=== PATIENT | female | born 1945 | race Caucasian/White ===

== ENCOUNTER 2023-05-26 20:56 | Inpatient (IN) | payer MEDICARE, BC, SELFPAY ==
[2023-05-26] VITALS (11 sets, daily range): BP systolic 114–136; BP diastolic 66–73; PULSE 80–82; RESP 16–20; TEMP 36.7; O2SAT 95–99
--- NOTE | 2023-05-26 21:05 | XR_ITS ---
The [address] [address] Patient Name: EMELINA CYR MRN: [id number] date: 1945 Sex: F Assigned Patient Location: ER Current Patient Location: ER Accession/Order Number: [id number] Exam Date: 05/26/2023 21:45 Report Date: 05/26/2023 22:26 At the request of: JOSEPHINE MARKER Procedure: XR chest 1V EXAM: XR chest 1V HISTORY: AMS COMPARISON: None. TECHNIQUE: Portable chest FINDINGS: Diffuse chronic changes throughout the lung parenchyma with no acute consolidation or infiltrate. No pneumothorax or pleural effusion. The cardiac, mediastinal and hilar contours are unremarkable XR/XR chest 1V IMPRESSION: No visualized acute irregularity. Electronically authenticated by: PATRICIA VALADEZ Date: 05/26/2023 22:26
--- NOTE | 2023-05-26 21:05 | CT_ITS ---
The [address] [address] Patient Name: EMELINA CYR MRN: [id number] date: 1945 Sex: F Assigned Patient Location: ER Current Patient Location: ER Accession/Order Number: [id number] Exam Date: 05/26/2023 21:45 Report Date: 05/26/2023 22:30 At the request of: JOSEPHINE MARKER Procedure: CT head/brain wo con EXAM: CT head/brain wo con HISTORY: fall, head trauma COMPARISON: None. TECHNIQUE: Axial CT scans through the head were obtained without IV contrast administration. Dose reduction techniques were achieved by using: automated exposure control and/or adjustment of mA and /or kV according to patient size and/or use of iterative reconstruction technique. FINDINGS: There is no evidence of acute intracranial hemorrhage or abnormal extra-axial fluid collection. No mass effect or midline shift is seen. There is no evidence of large acute territorial infarction. There is no hydrocephalus. Mild enlarged cortical sulci, consistent with age appropriate cerebral atrophy. Mild low-attenuation patchy areas are present in supratentorial white matter, likely represents chronic microvascular ischemia. There are mild atherosclerotic calcifications of bilateral carotid carotid arteries. To the limit of CT, the posterior fossa appears unremarkable. No definite acute fracture is identified. Soft tissues are unremarkable. The visualized orbits show no abnormal mass. The visualized paranasal sinuses show no air-fluid level. Mastoid air cells are clear. CT/CT head/brain wo con IMPRESSION: No CT evidence of acute intracranial abnormality. Electronically authenticated by: DAVID MCFARLAND Date: 05/26/2023 22:30
--- NOTE | 2023-05-26 21:05 | ECG_ITS ---
The [facility] Test Date: 2023-05-26 Pat Name: Nara Sadler Department: Room: - Gender: Female Setter Machine: : 1945 Requested By: ZHAO BROCK Order Number: [id number] Reading MD: CRISTINE DEAN Measurements Intervals [place] Rate: 80 P: 70 IN: 156 QRS: 71 QRSD: 86 T: 270 QT: 392 QTc: 428 Interpretive Statements 1100 Sinus rhythm 4164 Twave abnormality, possible anterior ischemia 9150 abnormal ECG No previous ECG available for comparison Electronically Signed On 05-27-2023 7:05:09 EDT by CRISTINE DEAN
--- NOTE | 2023-05-26 21:05 | XR_ITS ---
The [address] [address] Patient Name: EMELINA CYR MRN: [id number] date: 1945 Sex: F Assigned Patient Location: ER Current Patient Location: ER Accession/Order Number: [id number] Exam Date: 05/26/2023 21:45 Report Date: 05/26/2023 22:28 At the request of: JOSEPHINE MARKER Procedure: XR hip BI w PEL 1V EXAM: XR hip BI w PEL 1V HISTORY: fall, left hip pain COMPARISON: None. TECHNIQUE: AP pelvis and 2 views of each hip FINDINGS: No visualized acute fracture, dislocation, subluxation or osseous lesion. Old chronic irregularity of the left pubic symphysis. Hip joints and sacroiliac joints are unremarkable. Postoperative changes of lumbar spine XR/XR hip BI w PEL 1V IMPRESSION: No visualized acute abnormality Electronically authenticated by: PATRICIA VALADEZ Date: 05/26/2023 22:28
--- NOTE | 2023-05-26 21:05 | CT_ITS ---
The [address] [address] Patient Name: EMELINA CYR MRN: [id number] date: 1945 Sex: F Assigned Patient Location: ER Current Patient Location: ER Accession/Order Number: [id number] Exam Date: 05/26/2023 21:45 Report Date: 05/26/2023 22:29 At the request of: JOSEPHINE MARKER Procedure: CT thoracic spine wo con EXAM: CT thoracic spine wo con HISTORY: The patient is a 78-year-old female, fall, back pain COMPARISON: None. TECHNIQUE: CT images were obtained through the thoracic spine without intravenous contrast and reformatted in 2 dimensions. Dose reduction techniques were achieved by using automated exposure control and/or adjustment of mA and/or kV according to patient size and/or use of iterative reconstruction technique. FINDINGS: The axial images demonstrate no fractures or cortical discontinuities throughout the thoracic spine. The coronal and sagittal reformatted images demonstrate no fractures or loss of vertebral body height throughout the thoracic spine. There is no malalignment or disc space narrowing. There is evidence of a hemangioma within the left half of the L2 vertebral body. The soft tissue images demonstrate no evidence of disc herniations or central canal stenosis throughout the thoracic spine. CT/CT thoracic spine wo con IMPRESSION: This is a negative CT scan of the thoracic spine with no fractures or loss of vertebral body height. Electronically authenticated by: DAVID SHETTY Date: 05/26/2023 22:29
--- NOTE | 2023-05-26 21:06 | CT_ITS ---
The [address] [address] Patient Name: EMELINA CYR MRN: [id number] date: 1945 Sex: F Assigned Patient Location: ER Current Patient Location: ER Accession/Order Number: [id number] Exam Date: 05/26/2023 21:45 Report Date: 05/26/2023 22:35 At the request of: JOSEPHINE MARKER Procedure: CT cervical spine wo con EXAM: CT cervical spine wo con HISTORY: fall, head trauma, neck pain COMPARISON: None. TECHNIQUE: Axial CT imaging is performed. Sagittal and coronal reformatted reconstructed sequencing was additionally performed. FINDINGS: IMPRESSION: Age-indeterminate straightening of the normal cervical lordosis. Vertebral body heights and alignments exhibit no fracture or listhesis. The dens and lateral masses of C1 are symmetric. Multilevel intervertebral disc space narrowing, endplate, uncovertebral and facet changes. No prevertebral soft tissue edema. The visualized osseous skull base, mastoid air cells, airway and thoracic inlet exhibit no gross visualized acute abnormality. Poorly evaluated thickening of the esophagus. Chronic emphysema changes of the pulmonary apices with no visualized acute abnormality. Electronically authenticated by: PATRICIA VALADEZ Date: 05/26/2023 22:35
--- NOTE | 2023-05-26 21:08 | ED.FALL1 ---
HPI - Fall General Chief Complaint: Fall Stated Complaint: FALL Time Seen by Provider: 05/26/23 21:05 Source: patient Mode of arrival: ambulance History of Present Illness HPI Narrative: This 78-year-old female is brought emergency department by EMS after she fell out of bed. According to the paramedics report she was in bed and her family heard a side in her bedroom. They went into her room and she was on the floor. They are not available to provide additional history upon her arrival. Patient was placed in a cervical collar and transported to the emergency department. Upon arrival she was taken to room 5. She appears to be weak but is responsive and appropriate. She states she has hurts like hell. I asked her where she hurts and she stated between her shoulder blades. She does not recall falling. She is poorly kempt and foul-smelling. She complains of neck and upper back pain. She has pain with flexion of the right hip and appears to have somewhat of a shortened left lower extremity. She denies any chest pain or shortness of breath at this time. She denies any nausea stating that she recently vomited. She is wearing bed clothes that appear to be stained with old vomit but they are not wet. Patient's daughter arrived shortly after the patient was brought to the emergency department. The patient's daughter states that the patient lives with her granddaughter and great grandchildren who will try to take care of her. The patient does have a history of chronic obstructive pulmonary disease and no longer smokes cigarettes but does use a vape pen. She states that the patient refuses to get up and exercise. She has been admitted to the hospital several times in the past and then sent to rehab to get stronger to come home. She states that recently she has become less mobile than usual. She was sitting on the edge of her bed tonight, the bed is fairly low to the ground, it appeared after she fell that she may have struck her bedside stand because she was holding her head and complaining of head pain. Her great granddaughter heard her fall and went to her room. The patient's daughter states that she seems kind of out of it . She states that she did recently get approved to take Malone for pain and also takes 30 mg temazepam and amitriptyline for sleep. She also uses oxygen at night when she sleeps. She is a patient of Dr. Martinez but has not been able to get in for an appointment recently. Her daughter states that she has been increasingly weak and refuses to go to her podiatry appoinments. Her daughter is frustrated and hopes she can get some help. Related Data Allergies Allergy/AdvReac Type Severity Reaction Status Date / Time No Known Drug Allergies Allergy Verified 05/26/23 21:54 Review of Systems ROS Status of ROS 10 or more systems reviewed and unremarkable except as noted in history and below [facility] Social History Smoking status: Unknown if ever smoked Exam Narrative Exam Narrative: Nurses note and vital signs reviewed and patient is not hypoxic. General: Then, poorly kempt female, GCS 15, she has her eyes closed but opens them to verbal stimuli, she is awake alert oriented but think she is 89 years old Skin: Warm, dry, no pallor noted. Flat, brown rash on lumbar region, appears to be old meeks or chronic in nature Head: Normocephalic, atraumatic Neck: In cervical collar, no midline bony tenderness or step-off Eye: Normal conjunctiva, no drainage, EOMI. PERRL. Vision grossly intact Ears, Nose, Mouth, and Throat: oral mucosa is moist. Nares patent. Mouth without vesicles. Cardiovascular: Regular Rate and Rhythm S1S2, no murmurs, rubs or gallops, pulses are brisk and equal bilaterally Respiratory: Patient is in no distress, no accessory muscle use, lungs are clear to auscultation, no wheezing, rales or rhonchi, no chest wall tenderness Back: non-tender, no midline bony vertebral tenderness or step off, no CVA tenderness bilaterally to percussion. There are brown skin changes on both lower flank areas, appear chronic in nature such as old meeks etc GI: Normal bowel sounds, no tenderness to palpation, no masses appreciated. No rebound, guarding, or rigidity noted. 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 Able to move both lower extremities. She does appear to have some degree of diplopia. Psychiatric: Cooperative Constitutional Vital Signs, click to edit/add: Last Vital Signs Temp 98.1 F 05/26/23 20:58 Pulse 81 05/26/23 21:30 Resp 19 05/26/23 21:30 BP 120/66 05/26/23 22:31 Pulse Ox 98 05/26/23 22:31 O2 Del Method Room Air 05/26/23 21:20 Course Course Hospital Course: Patient was somewhat somnolent upon arrival and after IV fluids and several hours in the emergency department she is more alert. She states that she is only taking the Malone occasionally when she needs it for pain. She is interactive with her daughter. She admits that she needs help at home and may need some additional assistance as she has in the past. Vital Signs Vital signs: Vital Signs Temperature 98.1 F 05/26/23 20:58 Pulse Rate 82 05/26/23 20:58 Respiratory Rate 19 05/26/23 20:58 Blood Pressure 125/71 05/26/23 20:58 Pulse Oximetry 99 05/26/23 20:58 Oxygen Delivery Method Room Air 05/26/23 20:58 Temperature 98.1 F 05/26/23 20:58 Pulse Rate 81 05/26/23 21:30 Respiratory Rate 19 05/26/23 21:30 Blood Pressure 120/66 05/26/23 22:31 Pulse Oximetry 98 05/26/23 22:31 Oxygen Delivery Method Room Air 05/26/23 21:20 MDM - Fall MDM Narrative Medical decision making narrative: This 78-year-old female with a history of chronic obstructive pulmonary disease who lives with her granddaughter and grandchildren is brought to the emergency department from home after she fell. It is believed that she was sitting on the edge of her bed when she fell. Her bed is low to the ground but it is thought that she fell from a sitting position in her bed and struck her head on her bedside stand. She was evaluated by EMS and a cervical collar was placed. Upon arrival she was somnolent but arousable. GCS was 15. She made sense but had some degree of slurred speech. Due to the trauma and the uncertainty of her condition she was taken for CT scan of the head, neck and also her thoracic spine was scanned because she stated that she was having pain in her shoulder blades. The patient's daughter states that she does not see her every day but her granddaughter does keep track of her medications and she recently filled a prescription for Malone as well as temazepam 30 mg. She also takes Elavil. The patient apparently takes the temazepam and Elavil around bedtime and takes Malone around dinnertime if she needs it. This may account for her somnolence upon arrival. She denied any chest pain or shortness of breath upon arrival. The patient's daughter states she does use oxygen at night. Her pulse ox is been normal in the emergency department. Vital signs were stable. EKG done upon arrival was a sinus rhythm at 80 beats for minute with no acute changes. She was given IV fluids and routine labs were ordered as well as her CT scans and x-rays. She has a normal white count and hemoglobin. Her electrolytes are normal with the exception of a potassium of 2.9. Creatinine is mildly elevated at 1.16 The BUN of 15. Straight catheter for urine was performed and does not show any sign of acute infection. It does show bacteria and 2-5 white blood cells with squamous epithelial cells contaminating the urine. Urine tox is positive for benzos and tricyclics. She has a normal troponin. She has a normal lactic acid. Blood gas was ordered to rule out COO2 retention and shows a mild metabolic alkalosis. She received IV fluids and potassium supplementation in the emergency department. CT scan of the brain is negative for acute findings. CT scan of the cervical spine is negative for acute findings. Chest x-ray shows chronic changes but no acute infiltrate. CT scan of the thoracic spine does not show any acute findings and pelvis and hip x-ray is negative for acute findings. After several hours in the emergency department the patient became more alert, I suspect some of her medications or starting to wear off. Her daughter does wish to have her admitted to the hospital for further evaluation by her family physician and possible referral to rehab or in-home health care. The patient is agreeable to this. The case was discussed with the hospitalist and the patient is accepted for admission to [facility]. Lab Data Attestation: I reviewed the patient's lab results. Lab results narrative: potassium of 2.9, otherwise normal Labs: Lab Results 10/31/23 10/31/23 10/31/23 Range/Units 21:24 22:20 22:28 WBC 5.7 (4.0-11.0) 10^3/uL RBC 3.39 L (4.20-5.40) 10^6/uL Hgb 11.1 L (12.0-16.0) g/dL Hct 32.7 L (36.0-48.0) % MCV 96.5 (81.0-99.0) fL MCH 32.7 (26.7-34.0) pg MCHC 33.9 (29.9-35.2) g/dL RDW 14.3 (11.0-15.0) % Plt Count 257 (150-450) 10^3/uL MPV 9.6 (9.5-13.5) fL Neut % (Auto) 51.5 (43.0-75.0) % Lymph % (Auto) 32.2 (20.5-60.0) % [place]ansom % (Auto) 11.4 (1.7-12.0) % Eos % (Auto) 3.5 (0.9-7.0) % Baso % (Auto) 0.9 (0.2-2.0) % Neut # (Auto) 3.0 (1.4-6.5) 10^3/uL Lymph # (Auto) 1.8 (1.2-3.8) 10^3/uL Ransom # (Auto) 0.7 (0.3-0.8) 10^3/uL Eos # (Auto) 0.2 (0.0-0.7) 10^3/uL Baso # (Auto) 0.1 (0.0-0.1) 10^3/uL Abs Immat Gran (auto) 0.03 (0.00-0.03) 10^3/uL Imm/Tot Granulo (auto) 0.5 (0.0-0.5) % Puncture Site ABG pH (7.350-7.450) ABG pCO2 (35.0-45.0) mmHg ABG pO2 (80.0-100.0) mmHg ABG HCO3 (22.0-26.0) mmol/L ABG O2 Saturation % ABG Base Excess (-2.0-2.0) mmol/L Ken Test (POSITIVE) Sodium 135 L (136-145) mmol/L Potassium 2.9 L* (3.5-5.1) mmol/L Chloride 100 (98-107) mmol/L Carbon Dioxide 33.8 H (21.0-32.0) mmol/L Anion Gap 4.1 BUN 15.0 (7.0-18.0) mg/dL Creatinine 1.16 H (0.55-1.02) mg/dL Est GFR ( Amer) 55 L (>=60) Est GFR (Non-Af Amer) 45 L (>=60) BUN/Creatinine Ratio 12.9 Glucose 104 (74-106) mg/dL Lactate 1.2 (0.4-2.0) mmol/L Calcium 8.5 (8.5-10.1) mg/dL Total Bilirubin 0.5 (0.2-1.0) mg/dL AST 18 (15-37) U/L ALT 17 (14-59) U/L Alkaline Phosphatase 80 (46-116) U/L Troponin I High Sens 6.4 (4.0-51.3) pg/mL Total Protein 6.4 (6.4-8.2) g/dL Albumin 2.9 L (3.4-5.0) g/dL Globulin 3.5 g/dL Albumin/Globulin Ratio 0.8 Urine Color Lt. yellow (YELLOW) Urine Clarity Clear (CLEAR) Urine pH 7.0 (5.0-9.0) Ur Specific [place] 1.015 (1.005-1.025) Urine Protein Negative (NEG/TRACE) mg/dL Urine Glucose (UA) Negative (NEGATIVE) mg/dL Urine Ketones Negative (NEGATIVE) mg/dL Urine Occult Blood Trace-i (NEGATIVE) Urine Nitrite Negative (NEGATIVE) Urine Bilirubin Negative (NEGATIVE) Urine Urobilinogen 4.0 A (0.2-1.0) EU/dL Ur Leukocyte Esterase Trace A (NEGATIVE) Urine RBC 0-2 (0-2) #/HPF Urine WBC 2-5 A (NONE SEEN) #/HPF Ur Squamous Epith Cells Few A (NONE/RARE) #/LPF Urine Crystals None seen (None Seen) #/HPF Urine Bacteria Moderate A (NONE SEEN) #/HPF Urine Casts None seen (NONE SEEN) #/LPF Urine Mucus None seen (NONE SEEN) Ur Culture Indicated? Yes Urine Opiates Screen Negative (NEGATIVE) Ur Buprenorphine Scrn Negative (NEGATIVE) Ur Oxycodone Screen Negative (NEGATIVE) Urine Methadone Screen Negative (NEGATIVE) Ur Barbiturates Screen Negative (NEGATIVE) U Tricyclic Antidepress Positive A (NEGATIVE) Ur Phencyclidine Scrn Negative (NEGATIVE) Ur Amphetamines Screen Negative (NEGATIVE) U Methamphetamines Scrn Negative (NEGATIVE) U Benzodiazepines Scrn Positive A (NEGATIVE) Urine Cocaine Screen Negative (NEGATIVE) U Cannabinoids Screen Negative (NEGATIVE) 05/26/23 Range/Units 23:30 WBC (4.0-11.0) 10^3/uL RBC (4.20-5.40) 10^6/uL Hgb (12.0-16.0) g/dL Hct (36.0-48.0) % MCV (81.0-99.0) fL MCH (26.7-34.0) pg MCHC (29.9-35.2) g/dL RDW (11.0-15.0) % Plt Count (150-450) 10^3/uL MPV (9.5-13.5) fL Neut % (Auto) (43.0-75.0) % Lymph % (Auto) (20.5-60.0) % [place] % (Auto) (1.7-12.0) % Eos % (Auto) (0.9-7.0) % Baso % (Auto) (0.2-2.0) % Neut # (Auto) (1.4-6.5) 10^3/uL Lymph # (Auto) (1.2-3.8) 10^3/uL [place] # (Auto) (0.3-0.8) 10^3/uL Eos # (Auto) (0.0-0.7) 10^3/uL Baso # (Auto) (0.0-0.1) 10^3/uL Abs Immat Gran (auto) (0.00-0.03) 10^3/uL Imm/Tot Granulo (auto) (0.0-0.5) % Puncture Site Rr ABG pH 7.479 H (7.350-7.450) ABG pCO2 39.9 (35.0-45.0) mmHg ABG pO2 70.9 L (80.0-100.0) mmHg ABG HCO3 29.6 H (22.0-26.0) mmol/L ABG O2 Saturation 95.3 % ABG Base Excess 6.1 H (-2.0-2.0) mmol/L Ken Test Positive (POSITIVE) Sodium (136-145) mmol/L Potassium (3.5-5.1) mmol/L Chloride (98-107) mmol/L Carbon Dioxide (21.0-32.0) mmol/L Anion Gap BUN (7.0-18.0) mg/dL Creatinine (0.55-1.02) mg/dL Est GFR ( Amer) (>=60) Est GFR (Non-Af Amer) (>=60) BUN/Creatinine Ratio Glucose (74-106) mg/dL Lactate (0.4-2.0) mmol/L Calcium (8.5-10.1) mg/dL Total Bilirubin (0.2-1.0) mg/dL AST (15-37) U/L ALT (14-59) U/L Alkaline Phosphatase (46-116) U/L Troponin I High Sens (4.0-51.3) pg/mL Total Protein (6.4-8.2) g/dL Albumin (3.4-5.0) g/dL Globulin g/dL Albumin/Globulin Ratio Urine Color (YELLOW) Urine Clarity (CLEAR) Urine pH (5.0-9.0) Ur Specific [place] (1.005-1.025) Urine Protein (NEG/TRACE) mg/dL Urine Glucose (UA) (NEGATIVE) mg/dL Urine Ketones (NEGATIVE) mg/dL Urine Occult Blood (NEGATIVE) Urine Nitrite (NEGATIVE) Urine Bilirubin (NEGATIVE) Urine Urobilinogen (0.2-1.0) EU/dL Ur Leukocyte Esterase (NEGATIVE) Urine RBC (0-2) #/HPF Urine WBC (NONE SEEN) #/HPF Ur Squamous Epith Cells (NONE/RARE) #/LPF Urine Crystals (None Seen) #/HPF Urine Bacteria (NONE SEEN) #/HPF Urine Casts (NONE SEEN) #/LPF Urine Mucus (NONE SEEN) Ur Culture Indicated? Urine Opiates Screen (NEGATIVE) Ur Buprenorphine Scrn (NEGATIVE) Ur Oxycodone Screen (NEGATIVE) Urine Methadone Screen (NEGATIVE) Ur Barbiturates Screen (NEGATIVE) U Tricyclic Antidepress (NEGATIVE) Ur Phencyclidine Scrn (NEGATIVE) Ur Amphetamines Screen (NEGATIVE) U Methamphetamines Scrn (NEGATIVE) U Benzodiazepines Scrn (NEGATIVE) Urine Cocaine Screen (NEGATIVE) U Cannabinoids Screen (NEGATIVE) ECG Data Attestation: I personally reviewed and interpreted this ECG as follows: (Sinus rhythm 80 beats for minute, normal axis, normal intervals, no acute ST segment elevation or T-wave inversion) Discharge Plan Discharge Chief Complaint: Fall Clinical Impression: Fall from bed, initial encounter, Hypokalemia Patient Disposition: Admitted as Observation Time of Disposition Decision: 00:15 Condition: Fair Referrals: Joaquín Martinez MD [Primary Care Provider] - 1 week
[2023-05-26 21:49] LABS: Alanine Aminotransferase 17 U/L (14-59); Albumin Globulin Ratio 0.8; Albumin Level 2.9 g/dL (3.4-5.0); Alkaline Phosphatase 80 U/L (46-116); Anion Gap 4.1; Aspartate Amino Transferase 18 U/L (15-37); BUN Creatinine Ratio 12.9; Bilirubin Total 0.5 mg/dL (0.2-1.0); Calcium 8.5 mg/dL (8.5-10.1); Carbon Dioxide 33.8 mmol/L (21.0-32.0); Chloride 100 mmol/L (98-107); Estimated GFR (African America 55 (>=60); Estimated GFR (Non-African Ame 45 (>=60); Globulin 3.5 g/dL; Glucose 104 mg/dL (74-106); Sodium 135 mmol/L (136-145); Total Protein 6.4 g/dL (6.4-8.2); Troponin I High Sensitivity 6.4 pg/mL (4.0-51.3)
[2023-05-26 21:51] LABS: Potassium 2.9 mmol/L (3.5-5.1)
--- NOTE | 2023-05-26 21:54 | PC.NURSE ---
Daughter back to patient room at this time and is updated on plan of care. Daughter verifies patient has no known drug allergies.
[2023-05-26] MEDS: 0.9 % SODIUM CHLORIDE 1,000 ML 125 ML IV (22:13)
[2023-05-26] MEDS: ONDANSETRON PF 4 MG/2 ML VIAL IV (22:13)
[2023-05-26 22:52] LABS: Bilirubin Urine NEGATIVE (NEGATIVE); Blood Urine TRACE-I (NEGATIVE); Clarity Urine CLEAR (CLEAR); Color Urine LT. YELLOW (YELLOW); Glucose Urine UA NEGATIVE (NEGATIVE); Ketones Urine NEGATIVE (NEGATIVE); Leukocyte Esterase Urine TRACE (NEGATIVE); Nitrite Urine NEGATIVE (NEGATIVE); Protein Urine NEGATIVE (NEG/TRACE); Specific Gravity Urine 1.015 (1.005-1.025)
[2023-05-26 22:54] LABS: Basophils Absolute Auto 0.1 10^3/uL (0.0-0.1); Basophils Percent Auto 0.9 % (0.2-2.0); Eosinophils Absolute Auto 0.2 10^3/uL (0.0-0.7); Eosinophils Percent Auto 3.5 % (0.9-7.0); Hematocrit 32.7 % (36.0-48.0); Hemoglobin 11.1 g/dL (12.0-16.0); Immature Granulocytes Abs Auto 0.03 10^3/uL (0.00-0.03); Immature Granulocytes Pct Auto 0.5 % (0.0-0.5); Lymphocytes Absolute Auto 1.8 10^3/uL (1.2-3.8); Lymphocytes Percent Auto 32.2 % (20.5-60.0); Mean Corpuscular HGB Conc 33.9 g/dL (29.9-35.2); Mean Corpuscular Hemoglobin 32.7 pg (26.7-34.0); Mean Corpuscular Volume 96.5 fL (81.0-99.0); Mean Platelet Volume 9.6 fL (9.5-13.5); Monocytes Absolute Auto 0.7 10^3/uL (0.3-0.8); Monocytes Percent Auto 11.4 % (1.7-12.0); Neutrophils Percent Auto 51.5 % (43.0-75.0); Platelet Count 257 10^3/uL (150-450); Red Blood Count 3.39 10^6/uL (4.20-5.40); Red Cell Distribution Width 14.3 % (11.0-15.0); White Blood Count 5.7 10^3/uL (4.0-11.0)
[2023-05-26 23:06] LABS: Lactate/Lactic Acid 1.2 mmol/L (0.4-2.0)
[2023-05-26 23:07] LABS: Amphetamine Screen Urine NEGATIVE (NEGATIVE); Barbiturates Screen Urine NEGATIVE (NEGATIVE); Benzodiazepines Screen Urine POSITIVE (NEGATIVE); Buprenorphine Screen Urine NEGATIVE (NEGATIVE); Cannabinoid Screen Urine NEGATIVE (NEGATIVE); Cocaine Screen Urine NEGATIVE (NEGATIVE); Methadone Screen Urine NEGATIVE (NEGATIVE); Methamphetamines Screen Urine NEGATIVE (NEGATIVE); Opiate Screen Urine NEGATIVE (NEGATIVE); Oxycodone Screen Urine NEGATIVE (NEGATIVE); Phencyclidine Screen Urine NEGATIVE (NEGATIVE); Tricyclic Antidepressant Urine POSITIVE (NEGATIVE)
[2023-05-26 23:16] LABS: Bacteria Urine MODERATE #/HPF (NONE SEEN); Cast Seen? NONE SEEN #/LPF (NONE SEEN); Crystals Seen? None Seen #/HPF (None Seen); Mucus Urine NONE SEEN (NONE SEEN); RBC Urine 0-2 #/HPF (0-2); Squamous Epithelial Cell Urine FEW #/LPF (NONE/RARE); Urine Culture Indicated YES
[2023-05-26] MEDS: POTASSIUM CHLORIDE IN WATER 10 MEQ/100 ML PIGGYBACK 100 MEQ IV (23:18)
[2023-05-26 23:38] LABS: ABG PCO2 39.9 mmHg (35.0-45.0); Allen Test POSITIVE (POSITIVE); Base Excess ABG 6.1 mmol/L (-2.0-2.0); HCO3 ABG 29.6 mmol/L (22.0-26.0); O2 Mode ROOM AIR; Oxygen Saturation ABG 95.3 %; PO2 ABG 70.9 mmHg (80.0-100.0); Puncture Site RR; pH ABG 7.479 (7.350-7.450)
[2023-05-27] VITALS (19 sets, daily range): BP systolic 100–146; BP diastolic 61–72; PULSE 71–94; RESP 16–20; TEMP 36.5–36.9; O2SAT 91–100; BMI 23.8
[2023-05-27] MEDS: POTASSIUM CHLORIDE IN WATER 10 MEQ/100 ML PIGGYBACK 100 MEQ IV ×3 (00:45→04:22)
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
--- NOTE | 2023-05-27 02:12 | W.PM.TELEPN ---
Progress Note: Subjective Subjective Interval history: CC: weakness, frequent falls HPI: This 78-year-old WF who was brought emergency department by EMS after she fell out of bed. According to the paramedics report she was in bed and her family heard a side in her bedroom. They went into her room and she was on the floor. The patient was not available to provide additional history upon her arrival. She endorses falling daily. She is poorly kempt and foul-smelling. She complains of neck and upper back pain. She has pain with flexion of the right hip and appears to have somewhat of a shortened left lower extremity. She denies any chest pain or shortness of breath at this time. She denies any nausea stating that she recently vomited. The patient does have a history of chronic obstructive pulmonary disease and no longer smokes cigarettes but does use a vape pen. She states that the patient refuses to get up and exercise. She has been admitted to the hospital several times in the past and then sent to rehab to get stronger to come home. She states that recently she has become less mobile. She take [place] for pain and also takes 30 mg temazepam and amitriptyline for sleep. She also uses oxygen at night when she sleeps. She is a patient of Dr. Martinez but has not been able to get in for an appointment recently. Her daughter states that she has been increasingly weak and refuses to go to her podiatry appoinments. Her daughter is frustrated and hopes she can get some help. Exam Narrative Exam Narrative: ROS: 1.General: no fever, chills, not in distress 2.HEENT: no VILLATORO, no blurry vision, no swallow problems, no nasal congestion, no sore throat 3.Pulmonary: no cough, SOB, wheezes 4.CVS: no CP, no palpitations, no CHAIDEZ, no SOB, no intermittent claudication 5.GI: no nausea, vomiting or diarrhea, no abdominal pain, no constipation, no hematemesis or hematochezia 6.: no renal colic, no hematuria, urinary frequency or urgency 7.Extremities: no edema 8.Neurological: no dizziness, vertigo, double or blurry vision, no no focal weakness, no paresthesia, no swallow or speech problems 9.Musculosceletal: no joint pains, no joint swelling, no back pain 10.Dermatological: no skin rashes, no lesions, no pruritus 11.Hematological: no bleeding, no hx/o clots 12.Endocrinological: no heat/cold intolerance, no hx/o diabetes 13.Psychiatric: no suicidal or homicidal thoughts Physical Exam: Not in distress, pleasant, lucid, cooperative, Head - atraumatic, eyes - pupils equal, round, reactive to light, extra ocular movement intact, MMM Neck - supple, thyroid not enlarged, LN not palpated Lungs - clear to auscultation, no dullness on percussion CVS - heart sounds S1, S2, no additional murmurs gallop, regular rate and rhythm Gastrointestinal?abdomen is soft, non-tender, non-distended, no organomegaly, positive bowel sounds Extremities no clubbing, cyanosis or edema Neurological?cranial nerve II?XII grossly intact, no meningeal signs, no cerebellar signs, no sensory deficit Musculoskeletal - DJD related changes in multiple joints, no effusions, ROM preserved Dermatological - the skin dry, warm, no rashes Psychiatric?patient has normal affect Constitutional Vital Signs, click to edit/add: Last Vital Signs Temp 97.8 F 05/27/23 01:30 Pulse 85 05/27/23 01:30 Resp 20 05/27/23 01:30 BP 126/67 05/27/23 01:30 Pulse Ox 91 L 05/27/23 01:30 O2 Del Method Room Air 05/27/23 01:30 Progress Note: Objective Labs Labs: Short CBC 05/26/23 Range/Units 21:24 WBC 5.7 (4.0-11.0) 10^3/uL Hgb 11.1 L (12.0-16.0) g/dL Hct 32.7 L (36.0-48.0) % Plt Count 257 (150-450) 10^3/uL BMP 05/26/23 21:24 Sodium 135 L Potassium 2.9 L* Chloride 100 Carbon Dioxide 33.8 H BUN 15.0 Creatinine 1.16 H Glucose 104 Calcium 8.5 Liver Function 05/26/23 Range/Units 21:24 Total Bilirubin 0.5 (0.2-1.0) mg/dL AST 18 (15-37) U/L ALT 17 (14-59) U/L Alkaline Phosphatase 80 (46-116) U/L Albumin 2.9 L (3.4-5.0) g/dL Urine 05/26/23 Range/Units 22:20 Urine Color Lt. yellow (YELLOW) Urine Clarity Clear (CLEAR) Urine pH 7.0 (5.0-9.0) Ur Specific [place] 1.015 (1.005-1.025) Urine Protein Negative (NEG/TRACE) mg/dL Urine Glucose (UA) Negative (NEGATIVE) mg/dL Progress Note: A&P Assessment and Plan (1) Fall from bed, initial encounter: Assessment and Plan: Fall precautions in place Evaluation by physical occupational therapist ordered I am going to hold narcotics and benzodiazepines as a potential cause for the falls It seems patient can benefit from evaluation by hospice social worker as well as possible referral to rehab (2) Hypokalemia: Assessment and Plan: Replacement ordered, recheck in the morning (3) COPD (chronic obstructive pulmonary disease): Assessment and Plan: Appears to be not in distress. Ears: Bronchodilators as needed Plan As the provider for the telehealth service, I attest that I introduced myself to the patient, provided my credentials, disclosed by location and determined that based on a review of the patient's chart and discussion with members of the patient's treatment team, telemedicine via real-time, 2 way, and interactive audio and video platform is an appropriate and effective means of providing the service. ?The patient and I mutually agree this visit is appropriate for telemedicine. ?The virtual encounter was taken place from? [place], [place]. ?The encounter took approximately 35 minutes. ?The nurse was present during the entire time and I was able to move the stethoscope in appropriate directions. ?The patient was evaluated at the Hospital ? Portions of this note may be dictated using Chorus voice recognition software. Variances in spelling and vocabulary are possible and unintentional. Not all errors may be caught and/or corrected. Please notify the author if any discrepancies are noted and/or if the meaning of any statement is unclear.? ? Patient verbally consented for treatment via video visit with patient currently located at the [facility] and provider located in [place]. Telemedicine Attestation Telemedicine Attestation I conducted this encounter from [] via secure live, [id number] video conference with the patient, located at [facility] with [. Prior to the interview, the risks and benefits of telemedicine were discussed with the patient and verbal consent was obtained.
[2023-05-27 04:56] LABS: Basophils Percent Auto 0.6 % (0.2-2.0); Eosinophils Absolute Auto 0.1 10^3/uL (0.0-0.7); Eosinophils Percent Auto 1.3 % (0.9-7.0); Hemoglobin 10.2 g/dL (12.0-16.0); Immature Granulocytes Abs Auto 0.03 10^3/uL (0.00-0.03); Immature Granulocytes Pct Auto 0.4 % (0.0-0.5); Lymphocytes Absolute Auto 1.3 10^3/uL (1.2-3.8); Lymphocytes Percent Auto 19.6 % (20.5-60.0); Mean Corpuscular Hemoglobin 32.8 pg (26.7-34.0); Mean Corpuscular Volume 96.5 fL (81.0-99.0); Mean Platelet Volume 8.9 fL (9.5-13.5); Monocytes Absolute Auto 0.7 10^3/uL (0.3-0.8); Monocytes Percent Auto 9.7 % (1.7-12.0); Neutrophils Absolute Auto 4.7 10^3/uL (1.4-6.5); Neutrophils Percent Auto 68.4 % (43.0-75.0); Platelet Count 226 10^3/uL (150-450); Red Blood Count 3.11 10^6/uL (4.20-5.40); Red Cell Distribution Width 14.2 % (11.0-15.0); White Blood Count 6.8 10^3/uL (4.0-11.0)
[2023-05-27 05:15] LABS: Alanine Aminotransferase 15 U/L (14-59); Albumin Globulin Ratio 0.8; Albumin Level 2.4 g/dL (3.4-5.0); Alkaline Phosphatase 66 U/L (46-116); Anion Gap 7.6; Aspartate Amino Transferase 17 U/L (15-37); BUN Creatinine Ratio 14.4; Bilirubin Total 0.7 mg/dL (0.2-1.0); Calcium 7.4 mg/dL (8.5-10.1); Carbon Dioxide 31.4 mmol/L (21.0-32.0); Chloride 103 mmol/L (98-107); Estimated GFR (African America >60 (>=60); Estimated GFR (Non-African Ame >60 (>=60); Glucose 106 mg/dL (74-106); Sodium 138 mmol/L (136-145); Total Protein 5.4 g/dL (6.4-8.2)
[2023-05-27 09:42] LABS: Magnesium 1.8 mg/dL (1.8-2.4); Thyroid Stimulating Hormone 0.827 uIU/mL (0.358-3.740)
--- NOTE | 2023-05-27 10:06 | P.HP_ITS ---
Patient seen and examined, agree with assessment and plan below. Presented with increased weakness and found UTI and OVIDIO. Labs improved with IV fluids. On Rocephin and awaiting cultures. Start PT/OT for weakness. Diagnosis: 1. UTI 2. Hypokalemia 3. OVIDIO 4. Generalized weakness 5. Fall 6. COPD H&P: HPI History of Present Illness Chief complaint: FALL HYPOKALEMIA WEAKNESS Narrative: Date/Time of exam: 05/27/23 1948 This is a 78-year-old female patient with a past medical history as outlined below including COPD with chronic respiratory failure on O2 at night, insomnia, chronic arthritic pain; who presented to the ED last night after suffering an unwitnessed fall at home. The patient is a poor historian but reports increased falls up to 4 times in the last 1 week. She reports increasing weakness. Family notes that she resumed taking temazepam at night for sleep approximately 2 weeks ago, but had been off temazepam prior to that for more than 1 month. She has a [place] prescription that she takes occasionally for pain but uses rarely. Multiple bruises noted body wide in the ED. Work-up in the ED included CT images of the head, neck and thorax which were all unremarkable for acute abnormalities or fractures. Labs revealed hypokalemia (2.9), OVIDIO (BUN 15, CR 1.16, GFR 45) UA positive for UTI. An ABG revealed hypoxia with compensated chronic respiratory acidosis. UDS was positive for tricyclics and benzos which reflects her current prescribed medications. The patient was observed to be unkempt and staff noted an odor. She was admitted to observation by the hospitalist service last night but this has been converted to an inpatient admission today for hypokalemia, OVIDIO, dehydration, UTI, and frequent falls. At the time of my exam the patient is resting comfortably in bed. Nursing notes that the patient did not sleep well during the night. The patient does not have a clear memory of her fall but does describe multiple falls in the last week. She correlates her increasing falls to resuming temazepam but we do not have a clear causality. She notes increasing weakness over the last 1 to 2 weeks and also complains of urinary frequency although denies dysuria. She denies chest pain, shortness of breath, dizziness, abdominal pain, and cannot describe prodromal symptoms prior to her fall. Review of Systems ROS Status of ROS 10 or more systems reviewed and unremarkable except as noted in history and below [facility] Medical History (Updated 05/27/23 @ 11:15 by Shala Arias NP) Painful total knee replacement, left ?T84.84XA - Pain due to internal orthopedic prosthetic devices, implants and grafts, initial encounter (ICD-10) ?Z96.652 - Presence of left artificial knee joint (ICD-10) Peripheral edema ?R60.9 - Edema, unspecified (ICD-10) Surgical History (Updated 05/27/23 @ 01:00 by Yumiko Huang) History of hysterectomy ?Z90.710 - Acquired absence of both cervix and uterus (ICD-10) Previous back surgery ?Z98.890 - Other specified postprocedural states (ICD-10) Family History (Updated 05/27/23 @ 01:01 by Yumiko Huang) Father Family history of CHF (congestive heart failure) Social History (Updated 05/27/23 @ 01:03 by Yumiko Huang) Within the past year, how often did you have a drink containing alcohol: never Score interpretation: A score less than 3 is consistent with normal alcohol consumption. Smoking status: Former smoker Second hand tobacco smoke exposure: No Non-prescribed substance use: denies use Previous occupational history: retired Known occupational exposures/hazards: No Highest level of school completed/degree received: high school graduate Do you want help with school or training: No Are you now , , , , never or living with a partner: In a typical week, how many times do you talk on the telephone with family, friends, or neighbors: 3 or more times per week How often do you get together with friends or relatives: 3 or more times per week How often do you attend uatsdin or congregation services: never Little interest or pleasure in doing things: several days Feeling down, depressed, or hopeless: several days Feel stressed/tense/nervous/anxious/difficulty sleeping: only a little Due to disability, difficulty making decisions: No Do you think of yourself as: straight/heterosexual Gender Identity: female Meds Home Medications and Allergies Home Medications Medication Instructions Recorded Confirmed Type amitriptyline 75 mg tablet 75 mg PO .QHS 05/27/23 05/27/23 History benzonatate 200 mg capsule 200 mg PO TID PRN cough 05/27/23 05/27/23 History docusate sodium 100 mg capsule 100 mg PO BID PRN constipation 05/27/23 05/27/23 History ([place]) furosemide 20 mg tablet 20 mg PO .QD PRN edema 05/27/23 05/27/23 History hydrocodone 5 mg-acetaminophen 325 1 tab PO QID PRN pain 05/27/23 05/27/23 History mg tablet temazepam 30 mg capsule 30 mg PO .QHS PRN sleep 05/27/23 05/27/23 History Allergies Allergy/AdvReac Type Severity Reaction Status Date / Time No Known Drug Allergies Allergy Verified 05/26/23 21:54 Exam Constitutional Vital Signs, click to edit/add: Last Vital Signs Temp 97.7 F 05/27/23 05:55 Pulse 86 05/27/23 09:50 Resp 20 05/27/23 05:55 BP 114/70 05/27/23 05:55 Pulse Ox 93 L 05/27/23 05:55 O2 Del Method Room Air 05/27/23 05:55 Common normals: no apparent distress, oriented x3, alert and well nourished General appearance: cooperative Orientation/consciousness: Yes awake HENMT Common normals: normocephalic, head/scalp atraumatic, hearing grossly normal bilaterally, external ears normal, external nose normal and moist oral mucous membranes Head and scalp: normocephalic and atraumatic Face and sinus: normal facial exam Nose: external nose normal External ear: external ears normal Eye Common normals: PERRL, EOMs intact bilaterally, conjunctivae normal and no scleral icterus General eye: normal appearance of both eyes Alignment: alignment normal Eyelid: eyelids normal Conjunctiva: conjunctiva(e) normal Pupil: PERRL Neck & C-Spine Common normals: full ROM, supple and no JVD Chest Common normals: inspection of chest normal Chest: symmetrical chest wall rise Respiratory Common normals: normal respiratory effort, no retractions, no use of accessory muscles and clear to auscultation bilaterally Effort & inspection: able to speak in complete sentences Auscultation: diminished lung sounds (BLL) Cardio Common normals: no JVD, regular rate, regular rhythm, S1 normal heart sound, S2 normal heart sound, no gallops, no clicks, no murmurs, no rub and peripheral pulses 2+ throughout GI Common normals: Normal to inspection, nondistended, normoactive bowel sounds present, soft to palpation, non-tender, no hepatosplenomegaly, no masses and no bruits Palpation: soft and no hepatosplenomegaly Bladder/kidney exam: bladder normal to palpation Bimanual exam- vagina & uterus: bladder normal to palpation Back & Pelvis Common normals: thoracic and lumbar spine normal to inspection Extremity Common normals: normal capillary refill and no pedal edema General: normal exam except as noted; no clubbing and no cyanosis Right lower extremity: foot and digits (Instep & 3/4th toe bruising/tenderness) Neuro Jez Coma Scale: GCS not evaluated Common normals: oriented x3, CN's II-XII intact bilaterally, moves all extremities, no focal motor deficits and no sensory deficits noted Sensorium/orientation: awake and alert Speech: speech normal Motor exam: strength 5/5 throughout Psych Common normals: mental status grossly normal, thought process normal, affect normal and activity/motor behavior normal Thought process: normal thought process Results Labs Labs: Short CBC 05/26/23 05/27/23 Range/Units 21:24 04:34 WBC 5.7 6.8 (4.0-11.0) 10^3/uL Hgb 11.1 L 10.2 L (12.0-16.0) g/dL Hct 32.7 L 30.0 L (36.0-48.0) % Plt Count 257 226 (150-450) 10^3/uL BMP 05/26/23 05/27/23 21:24 04:34 Sodium 135 L 138 Potassium 2.9 L* 4.0 Chloride 100 103 Carbon Dioxide 33.8 H 31.4 BUN 15.0 13.0 Creatinine 1.16 H 0.90 Glucose 104 106 Calcium 8.5 7.4 L Liver Function 05/26/23 05/27/23 Range/Units 21:24 04:34 Total Bilirubin 0.5 0.7 (0.2-1.0) mg/dL AST 18 17 (15-37) U/L ALT 17 15 (14-59) U/L Alkaline Phosphatase 80 66 (46-116) U/L Albumin 2.9 L 2.4 L (3.4-5.0) g/dL Urine 10/31/23 Range/Units 22:20 Urine Color Lt. yellow (YELLOW) Urine Clarity Clear (CLEAR) Urine pH 7.0 (5.0-9.0) Ur Specific [place] 1.015 (1.005-1.025) Urine Protein Negative (NEG/TRACE) mg/dL Urine Glucose (UA) Negative (NEGATIVE) mg/dL ABG ABG results: 05/26/23 23:30 ABG pH 7.479 H ABG pCO2 39.9 ABG pO2 70.9 L ABG HCO3 29.6 H ABG O2 Saturation 95.3 ABG Base Excess 6.1 H Pulse Oximetry Attestation: I have reviewed the pertinent pulse oximetry results. Imaging Chest x-ray: Attestation: I have reviewed the pertinent imaging results. Radiologist's impression: IMPRESSION: No visualized acute irregularity. CT scan - head: Attestation: I have reviewed the pertinent imaging results. Radiologist's impression: IMPRESSION: No CT evidence of acute intracranial abnormality. Hip/Pelvis XR: Attestation: I have reviewed the pertinent imaging results. Radiologist's impression: IMPRESSION: No visualized acute abnormality CT Thoracic Spine: Attestation: I have reviewed the pertinent imaging results. Radiologist's impression: IMPRESSION: This is a negative CT scan of the thoracic spine with no fractures or loss of vertebral body height. CT Cervical Spine: Attestation: I have reviewed the pertinent imaging results. Radiologist's impression: IMPRESSION: Age-indeterminate straightening of the normal cervical lordosis. Vertebral body heights and alignments exhibit no fracture or listhesis. The dens and lateral masses of C1 are symmetric. Multilevel intervertebral disc space narrowing, endplate, uncovertebral and facet changes. No prevertebral soft tissue edema. The visualized osseous skull base, mastoid air cells, airway and thoracic inlet exhibit no gross visualized acute abnormality. Poorly evaluated thickening of the esophagus. Chronic emphysema changes of the pulmonary apices with no visualized acute abnormality. Assessment and Plan Assessment and Plan (1) Hypokalemia: Assessment and Plan: ACUTE * Adm inpatient * Unclear etiology - possibly 2/2 PRN diuretic and/or poor PO intake * check magnesium level and replete if indicated * Repleted w/ KCL 40 mEq overnight and K+ normalized today * Likely contributing to pt's recent increased weakness * CMP daily to monitor (2) Acute kidney injury: Assessment and Plan: ACUTE * Suspect 2/2 dehydration/poor oral fluid intake but UTI may also contribute * Hold home furosemide for now d/t renal toxicity and dehydration, likely resume PRN dosing at discharge * Resolving after IVFs overnight * Reduce IVF rate to 75 ml/hr to avoid fluid overload. likely d/c in AM * CMP daily (3) UTI (urinary tract infection): Assessment and Plan: ACUTE * Pt denies dysuria but c/o of increased urinary frequency * UA equivocally positive - urine culture pending * Possible contributor to OVIDIO * Start Rocephin IVPB now. Plan 3-5 day course of ABX * No leukocytosis and afebrile. No clinical concern for sepsis at this time * CBC daily (4) Generalized weakness: Assessment and Plan: ACUTE * Multifactorial - electrolyte disturbances, UTI, OVIDIO, dehydration, malnutrition * Check TSH to r/o hypothyroidism * Replete electrolytes * IVFs & ABX as above * PT/OT for eval and treat * Consider SNF vs HH at discharge for continued strengthening (5) Frequent falls: Assessment and Plan: ACUTE * Multifactorial - see weakness * Consider polypharmacy as pt has recently resumed taking temazepam for insomnia w/ concurrent PRN [place] use and HS amitryptyline * Hold temazepam for now - likely d/c at discharge pending TCM visit w/ PCP * Pt does not remember most recent fall last night supporting benzo contributing to falls * CT head/neck/thorax and XR chest/hips/pelvis all neg for acute fracture or dislocations * Obtain R foot XR d/t tenderness, bruising from most recent fall * Possible underlying dementia/sun-downing contributing to falls - defer to PCP outpatient follow up * PT/OT eval and treat (6) Dehydration: Assessment and Plan: ACUTE * Resolving - clinically dry on admission * NS IVF at 100 ml/hr overnight, reduce to 75 ml/hr now and likely d/c in AM * CMP daily (7) Malnutrition of mild degree ([place]: 75% to less than 90% of standard weight): Assessment and Plan: CHRONIC * Significant hypoproteinemia w/ assoc low pre-albumin * Family reports to nursing that pt is not eating well and refusing to bathe regularly * director of clinical services to address possible depression. * Dementia suspected and may also be contributing - defer to OP management * Consult telecommunications technician (8) COPD (chronic obstructive pulmonary disease): Assessment and Plan: CHRONIC * Chronic resp failure * Continue PRN O2 supplementation at night if sats drop below 90% (9) Peripheral edema: Assessment and Plan: CHRONIC * Hold home PRN lasix for now d/t dehydration and OVIDIO * Likely resume at d/c pending clinical course
[2023-05-27 10:16] LABS: Ethanol <3 mg/dL
--- NOTE | 2023-05-27 10:30 | XR_ITS ---
The [address] [address] Patient Name: EMELINA CYR MRN: [id number] date: 1945 Sex: F Assigned Patient Location: [place] Current Patient Location: [place] Accession/Order Number: [id number] Exam Date: 05/27/2023 10:48 Report Date: 05/27/2023 11:31 At the request of: ANGEL PARKINSON Procedure: XR foot RT min 3V HISTORY: Pain and bruising of the right foot after a fall. XR foot RT min 3V: 05/27/2023 10:48 AM EDT COMPARISON: None. FINDINGS: 3 views of the right foot were obtained. There is a small Chata's deformity of the calcaneus. There is a small plantar calcaneal enthesophyte. There is mild soft tissue swelling along the dorsum of the forefoot. No acute displaced fracture or dislocation is seen. There appear to be mild degenerative changes of the first MTP joint and first metatarsal-sesamoid joints. XR/XR foot RT min 3V IMPRESSION: There is mild soft tissue swelling along the dorsum of the foot. However, no fracture or dislocation is seen. Electronically authenticated by: DAWNA PAT Date: 05/27/2023 11:31
[2023-05-27] MEDS: DOCUSATE SODIUM 100 MG CAPSULE PO (10:33)
[2023-05-27] MEDS: 0.9 % SODIUM CHLORIDE 1,000 ML 100 ML IV (10:33)
--- NOTE | 2023-05-27 10:46 | CM.NOTE ---
Rounds made with Dr. Martinez, no discharge today. Discussed plan of care with pt and underlying diagnosis. PT and OT will evaluate pt today.
--- NOTE | 2023-05-27 10:48 | CM.NOTE ---
Important Message From Medicare discussed with pt, pt verbalizes understanding and signs paper. Original given to pt and copy placed on pt's chart.
[2023-05-27] MEDS: CEFTRIAXONE 1,000 MG in 0.9 % SODIUM CHLORIDE 50 ML 100 MG IV (11:00)
[2023-05-27] MEDS: 0.9 % SODIUM CHLORIDE 1,000 ML 75 ML IV ×2 (12:57→23:39)
--- NOTE | 2023-05-27 14:18 | SWNOTE1 ---
SW met with pt to discuss dc needs. Pt does live at home with her grand-daughter and her great grandchildren whom are 11,6, & 5. She voiced her grand-daughter helps as much as she can. Pt does voice she does feel a little weaker than usual, but has been ambulating at home with her walker. SW spoke with her about therapy, she voiced she worked with them here and felt it went fairly well. SW did ask her about home health. Pt would like to have HH and has had in past. She stated when she left [place] she was set up with it. SW asked permission to talk to family to determine what HH company pt and family would like to use. Pt does not have a preference. SW to call family. SW did ask pt if she was feeling down or depressed. Pt voiced she is not feeling depressed.
--- NOTE | 2023-05-27 16:27 | SWNOTE1 ---
SW called and spoke with pt's daughter, pt's daughter Lucila was in pt's room. SW stopped in room to speak with her. Pt's daughter voiced her appreciation of Dr. Young down in ER. Pt's daughter voiced some frustrations with nursing from earlier when calling to try to get update and also frustrations Dr. Martinez's office as they have been tryin to get medications confirmed and HH set up from the home. SW and daughter spoke about home health coming in and daughter would like this. A family member used to work for [facility] but they closed. SW provided HH list from medicare.gov, daughter will review and let SW know tomorrow. She will also talk to her daughter as well. Pt's daughter plans on being here tomorrow to speak with doctor. Pt's daughter voiced that family is very involved and many times pt listens to strangers versus family. She was doing well at home, just needs some strengthening. Daughter did ask about a note for her Human resource dept stating she was here at hospital. SW sent email to Nell to see if we do that. Daughter also mentioned POA paperwork. Daughter spoke to medical records, but was not in system, SW to check with [facility]. SW called [facility] and they do not have POA paperwork.
[2023-05-27] MEDS: AMITRIPTYLINE HCL 25 MG TABLET 75 MG PO (21:14)
[2023-05-28] VITALS (9 sets, daily range): BP systolic 95; BP diastolic 61; PULSE 74–85; RESP 18; TEMP 36.8; O2SAT 94
[2023-05-28 05:58] LABS: Basophils Absolute Auto 0.1 10^3/uL (0.0-0.1); Basophils Percent Auto 0.9 % (0.2-2.0); Eosinophils Absolute Auto 0.3 10^3/uL (0.0-0.7); Eosinophils Percent Auto 4.9 % (0.9-7.0); Hematocrit 25.9 % (36.0-48.0); Hemoglobin 8.7 g/dL (12.0-16.0); Immature Granulocytes Abs Auto 0.04 10^3/uL (0.00-0.03); Immature Granulocytes Pct Auto 0.7 % (0.0-0.5); Lymphocytes Absolute Auto 1.9 10^3/uL (1.2-3.8); Lymphocytes Percent Auto 34.8 % (20.5-60.0); Mean Corpuscular HGB Conc 33.6 g/dL (29.9-35.2); Mean Corpuscular Hemoglobin 32.6 pg (26.7-34.0); Mean Platelet Volume 9.4 fL (9.5-13.5); Monocytes Absolute Auto 0.6 10^3/uL (0.3-0.8); Monocytes Percent Auto 10.5 % (1.7-12.0); Neutrophils Absolute Auto 2.6 10^3/uL (1.4-6.5); Neutrophils Percent Auto 48.2 % (43.0-75.0); Platelet Count 215 10^3/uL (150-450); Red Blood Count 2.67 10^6/uL (4.20-5.40); Red Cell Distribution Width 14.4 % (11.0-15.0); White Blood Count 5.3 10^3/uL (4.0-11.0)
--- NOTE | 2023-05-28 06:00 | XR_ITS ---
The [place] [id number] Patient Name: EMELINA CYR MRN: [id number] date: 1945 Sex: F Assigned Patient Location: [place] Current Patient Location: [place] Accession/Order Number: [id number] Exam Date: 05/28/2023 04:16 Report Date: 05/28/2023 04:59 At the request of: ANGEL PARKINSON Procedure: XR chest 1V EXAM: XR chest 1V HISTORY: Hypoxia COMPARISON: Chest x-ray, 05/26/2023. TECHNIQUE: AP upright portable chest x-ray. FINDINGS: The patient is tilted and mildly rotated to the right. Cardiac size and pulmonary vascularity are within normal limits. Mild chronic reticular opacities in the periphery of the lateral right upper lobe and lung bases are suspicious for background chronic interstitial lung disease. No acute infiltrate, pleural fluid or pneumothorax is seen. XR/XR chest 1V IMPRESSION: Nonacute chest. Background chronic interstitial lung disease is suspected. Electronically authenticated by: LUCA JOHNS Date: 05/28/2023 04:59
[2023-05-28 06:11] LABS: Alanine Aminotransferase 12 U/L (14-59); Albumin Globulin Ratio 0.7; Alkaline Phosphatase 59 U/L (46-116); Anion Gap 8.7; Aspartate Amino Transferase 12 U/L (15-37); BUN Creatinine Ratio 9.5; Bilirubin Total 0.3 mg/dL (0.2-1.0); Calcium 7.4 mg/dL (8.5-10.1); Carbon Dioxide 24.8 mmol/L (21.0-32.0); Chloride 109 mmol/L (98-107); Estimated GFR (African America >60 (>=60); Estimated GFR (Non-African Ame >60 (>=60); Globulin 2.7 g/dL; Glucose 98 mg/dL (74-106); Potassium 3.5 mmol/L (3.5-5.1); Sodium 139 mmol/L (136-145); Total Protein 4.7 g/dL (6.4-8.2)
[2023-05-28] MEDS: ACETAMINOPHEN 325 MG TABLET 650 MG PO (08:10)
[2023-05-28] MEDS: DOCUSATE SODIUM 100 MG CAPSULE PO (08:10)
--- NOTE | 2023-05-28 09:54 | SWNOTE1 ---
SW spoke with daughter and let her know that we do have generic form for family for excuse for work. SW also let her know SW checked both systems and no POA paperwork and [place] did not have it either. Daughter asked pt where she had it done and she was not too sure. SW to look for paperwork. Pt's daughter asked SW about bed rails for pt's bed at home. The grand-daughter attempted to call [employer], but number was disconnected. SW to see if there is any other numbers/resources. SW asked pt's daughter about HH and she has not had a chance to look over. SW to check back in later.
--- NOTE | 2023-05-28 10:04 | SWNOTE1 ---
CONTRERAS received message from Case management and [facility] is first choice and [facility] is second. CONTRERAS sent referral to [facility].
--- NOTE | 2023-05-28 10:45 | P.DS_ITS ---
Patient seen and examined, agree with assessment and plan below. Patient improved with IV fluids and antibiotics. Evaluated by PT/OT and recommended home health. Stopped Elavil and Restoril. F/u in office next week as scheduled. Diagnosis: 1. UTI 2. Hypokalemia 3. OVIDIO 4. Generalized weakness 5. Fall 6. COPD DS: Providers Provider Date of admission: 05/27/23 00:36 Primary care physician: Joaquín Martinez MD Consults: 05/27/23 10:05 Occupational Therapy Eval and Treat Routine Reason for consultation: Gen Weakness Physical Therapy Eval and Treat Routine Reason for consultation: Gen weakness, frequent falls Has provider been notified: No 05/27/23 11:34 Consult to Packing And Shipping Clerk Routine Reason for consult:: Food/Nutrition Other reason:: ?? Depression?? 05/27/23 11:35 Consult to Dietitian Routine Reason For Exam: suspect malnutrition Reason for consultation: Suspect malnutrition/poor po intake Has provider been notified: No Discharging clinician: Shala Arias DS: Diagnosis Discharge Diagnosis (1) Hypokalemia: (2) Acute kidney injury: (3) UTI (urinary tract infection): (4) Generalized weakness: (5) Frequent falls: (6) Dehydration: (7) Malnutrition of mild degree ([place]: 75% to less than 90% of standard weight): (8) COPD (chronic obstructive pulmonary disease): (9) Peripheral edema: DS: Summary Hospital Course Hospital Course: The patient was admitted with OVIDIO, UTI, hypokalemia, generalized weakness, and frequent falls. She was treated with antibiotics, IV fluids, and KCl supplementation. Her electrolyte abnormalities resolved and her weakness improved. Multiple x-rays obtained due to the patient's falls were negative for acute fracture or dislocation. There are some question of polypharmacy contributing to the patient's fall just prior to admission. Her temazepam was held during this admission and will be discontinued at discharge. We will also discontinue amitriptyline at discharge. She will be given a prescription for 3 more days of cefdinir for her UTI (total 5-day course). We suspect mild malnutrition d/t low protein blood levels. Pt is encouraged to increase protein intake. She is being discharged home in stable condition with home health services for further strengthening and hopefully fall prevention. She should follow-up with her PCP within 3 to 5 days. Status at Discharge Overall status at discharge: patient is progressing back to baseline Time Spent with Patient Time attestation: Total time spent providing and/or coordinating discharge services: Time spent: greater than 30 minutes Specific discharge activities: Physical exam, discussion of discharge plan, questions answered, coordination of care. Exam Constitutional Vital Signs, click to edit/add: Last Vital Signs Temp 98.2 F 05/28/23 05:57 Pulse 79 05/28/23 10:01 Resp 18 05/28/23 08:00 BP 95/61 05/28/23 05:57 Pulse Ox 94 L 05/28/23 05:57 O2 Del Method Room Air 05/28/23 05:57 Common normals: no apparent distress, oriented x3 and alert General appearance: cooperative Orientation/consciousness: Yes awake HENMT Common normals: normocephalic and head/scalp atraumatic Head and scalp: normocephalic and atraumatic Eye Common normals: PERRL, EOMs intact bilaterally, conjunctivae normal and no scleral icterus Conjunctiva: conjunctiva(e) normal Pupil: PERRL Respiratory Common normals: normal respiratory effort, no use of accessory muscles and clear to auscultation bilaterally Effort & inspection: able to speak in complete sentences and symmetric chest movement Auscultation: diminished lung sounds (BLL) Cardio Common normals: no JVD, regular rate, regular rhythm, S1 normal heart sound, S2 normal heart sound, no gallops, no clicks, no murmurs, no rub and peripheral pulses 2+ throughout GI Common normals: Normal to inspection, nondistended, normoactive bowel sounds present, soft to palpation and non-tender Bladder/kidney exam: bladder normal to palpation Extremity Common normals: normal to inspection, full ROM, normal capillary refill and no pedal edema General: no clubbing and no cyanosis Neuro Common normals: oriented x3, CN's II-XII intact bilaterally, moves all extremities, no focal motor deficits and no sensory deficits noted Sensorium/orientation: awake and alert Speech: speech normal Psych Common normals: mental status grossly normal and activity/motor behavior normal Appearance: grossly normal DS: Data Data Completed and Pending Labs on day of discharge: Labs from last 24 hours 05/28/23 05:21 WBC 5.3 RBC 2.67 L Hgb 8.7 L Hct 25.9 L MCV 97.0 MCH 32.6 MCHC 33.6 RDW 14.4 Plt Count 215 MPV 9.4 L Neut % (Auto) 48.2 Lymph % (Auto) 34.8 Mccormick % (Auto) 10.5 Eos % (Auto) 4.9 Baso % (Auto) 0.9 Neut # (Auto) 2.6 Lymph # (Auto) 1.9 Mccormick # (Auto) 0.6 Eos # (Auto) 0.3 Baso # (Auto) 0.1 Abs Immat Gran (auto) 0.04 H Imm/Tot Granulo (auto) 0.7 H Sodium 139 Potassium 3.5 Chloride 109 H Carbon Dioxide 24.8 Anion Gap 8.7 BUN 8.0 Creatinine 0.84 Est GFR ( Amer) >60 Est GFR (Non-Af Amer) >60 BUN/Creatinine Ratio 9.5 Glucose 98 Calcium 7.4 L Total Bilirubin 0.3 AST 12 L ALT 12 L Alkaline Phosphatase 59 Total Protein 4.7 L Albumin 2.0 L Globulin 2.7 Albumin/Globulin Ratio 0.7 Discharge Plan Discharge Disposition: Home Health Service Condition: Fair Discharge Medications: New cefdinir 300 mg capsule 300 mg PO BID 4 Days Qty: 7 0RF Rx Instructions: First dose evening of 05/28/23 Continued benzonatate 200 mg capsule 200 mg PO TID PRN (Reason: cough) hydrocodone-acetaminophen 5-325 mg tablet 1 tab PO QID PRN (Reason: pain) furosemide 20 mg tablet 20 mg PO .QD PRN (Reason: edema) docusate sodium [Col-Rite] 100 mg capsule 100 mg PO BID PRN (Reason: constipation) Discontinued amitriptyline 75 mg tablet 75 mg PO .QHS temazepam 30 mg capsule 30 mg PO .QHS PRN (Reason: sleep) Activity: ambulate only with your walker and increase activity as tolerated Activity Restrictions/Additional Instructions: - Increase daily protein intake Forms: Portal Instructions Follow Up Appointments: - FU with Dr Martinez on 06/02/23 as previously scheduled
--- NOTE | 2023-05-28 11:43 | CM.NOTE ---
Rounds made with Dr. Martinez, pt's daughter at bedside. Discussed plan of care and discharge to home today with HH. 1st request is for [facility] and second option [facility].
--- NOTE | 2023-05-28 11:45 | PT.DAILY ---
Physical Therapy Daily Note PT Daily Note/Assess Start: 05/28/23 11:43 Freq: Status: Active Protocol: Document 05/28/23 11:43 LILY (Rec: 05/28/23 11:45 LILY [id number]) Visit Not Completed Visit Not Completed Visit Not Completed Due to: Pt refusing Other Reason Visit Not Completed Pt eating lunch at this time. Declines wanting in chair for lunch. Will follow up later this afternoon. Physical Therapy Daily Note/Assessment Time In/Time Out Time In 11:42 Time Out 11:42 GG. Functional Abilities and Goals-Complete for Swing Bed Patients Only [id number]. Self-Care [id number]. Mobility
--- NOTE | 2023-05-28 12:59 | SWNOTE1 ---
[facility] is able to accept, SW updated nursing. SW sent discharge orders to [facility].
--- NOTE | 2023-05-28 13:39 | SWNOTE1 ---
Pt is discharging with [facility] . Orders sent.
--- NOTE | 2023-05-29 15:14 | CM.DCFOLLOWU ---
Person spoke with: patient How are you feeling? still pain, but stated she will always have pain How is your pain? tolerable Did you understand your discharge instructions? yes Do you have any questions about your discharge instructions? no Were you given any prescriptions at discharge? yes Were you able to get your prescriptions filled? yes Do you understand how to take your medications as ordered? yes Do you have any questions about your follow up appointment and do you plan to keep your follow up appointment? no questions, will go to follow up Is there anything else that you would like to discuss? no Questions/Comments/Concerns/Other:
== END 2023-05-28 13:15 | disposition home health service (06) | DRG 683 ==
LOC: ER 05-27 00:15 → MS 05-27 02:01
PROVIDERS: Admitting Provider Internal Medicine; Emergency Provider Emergency Medicine; PCP Family Medicine; Visit Provider Nurse Practitioner
DX: N17.9 Acute kidney failure, unspecified (principal); E44.1 Mild protein-calorie malnutrition; N39.0 Urinary tract infection, site not specified; J96.11 Chronic respiratory failure with hypoxia; J96.12 Chronic respiratory failure with hypercapnia; E87.6 Hypokalemia; R53.1 Weakness; E86.0 Dehydration; R29.6 Repeated falls; R60.9 Edema, unspecified; J44.9 Chronic obstructive pulmonary disease, unspecified; G47.00 Insomnia, unspecified; M19.90 Unspecified osteoarthritis, unspecified site; G89.29 Other chronic pain; F17.290 Nicotine dependence, other tobacco product, uncomplicated; W06.XXXA Fall from bed, initial encounter; Z96.652 Presence of left artificial knee joint; Z68.23 Body mass index [BMI] 23.0-23.9, adult; Z91.81 History of falling; Z99.81 Dependence on supplemental oxygen; Z79.899 Other long term (current) drug therapy; Z90.710 Acquired absence of both cervix and uterus; Z98.890 Other specified postprocedural states; Z82.49 Family history of ischemic heart disease and other diseases of the circulatory system
CPT/HCPCS: 36415; 36600; 70450; 71045; 72125; 72128; 73523; 73630; 80053; 80307; 80320; 81001; 82805; 83605; 83735; 84134; 84443; 84484; 85025; 87086; 87150; 87186; 93005; 96365; 96366; 96367; 96368; 96375; 97162; 97165; 97535; 99285; Q3014

== ENCOUNTER 2025-02-10 14:19 | Outpatient (OUT) | payer MEDICARE, BC, SELFPAY ==
--- OUTSIDE RECORDS SUMMARY | 2025-02-10 14:28 | XMS_ITS | Clinical Summary ---
Author Organization [employer] [facility] Address [id number] [address] [place] [address] Care Team Providers Care Plastics Scientist Name Role Phone Joaquín Martinez MD Primary Care Provider [phone] Allergies No known active allergies Medications No known medications Social History Tobacco Use Types Packs/Day Years Used Date Smoking Tobacco: Unknown Smokeless Tobacco: Current Childcare Answer Date Recorded Childcare Unknown 01/05/2019 Employment Answer Date Recorded Employment Unknown 01/05/2019 Comments Unknown Sex and Gender Information Value Date Recorded Sex Assigned at Not on file Legal Sex Female 11:47 AM EDT Gender Identity Not on file Sexual Orientation Not on file Last Filed Vital Signs Vital Sign Reading Time Taken Comments Blood Pressure 150/83 07/03/2021 7:31 PM EST Pulse 86 07/03/2021 7:31 PM EST Temperature 36.3 C (97.4 F) 07/03/2021 7:31 PM EST Respiratory Rate 18 07/03/2021 3:38 PM EST Oxygen Saturation 92% 07/03/2021 7:31 PM EST on RA Inhaled Oxygen Concentration - - Weight 68 kg (150 lb) 07/03/2021 3:38 PM EST Height 165.1 cm (5' 5 ) 07/03/2021 3:38 PM EST Body Mass Index 24.96 07/03/2021 3:38 PM EST Plan of Treatment Health Maintenance Due Date Last Done Comments Depression Screening 1957 Tobacco Screening 1957 DTaP,Tdap and Td Vaccines (1 - Tdap) 1963 Zoster (Shingles) Vaccine (1 of 2) 1994 Fall Risk Screening 2009 Influenza Vaccine 03/27/2025 Medical Devices Not on file Insurance MEDICARE Care Teams Plastics Scientist Relationship Specialty Start Date End Date Joaquín Martinez MD PCP - General Family Medicine 07/03/21
--- OUTSIDE RECORDS SUMMARY | 2025-02-10 14:28 | XMS_ITS | Encounter Summary ---
Author Organization [facility] Address [address] [place] [address] Care Team Providers Care Blood Typer Name Role Phone Joaquín Martinez MD Primary Care Provider [phone] Joaquín Martinez MD Primary Care Provider [phone] Joaquín Martinez MD Unavailable Encounter Details Date Type Department Care Team (Late Contact Info) Description 07/09/2023 Abstract [facility] [address] [place] [phone] Joaquín Martinez MD [address] [place] [phone] Social History Tobacco Use Types Packs/Day Years Used Date Smoking Tobacco: Never Assessed Comments Unknown Sex and Gender Information Value Date Recorded Sex Assigned at Not on file Legal Sex Female 6:53 PM EDT Gender Identity Not on file Sexual Orientation Not on file documented as of this encounter Plan of Treatment Upcoming Encounters Date Type Department Care Team (Late Contact Info) Description 03/28/2025 2:00 PM EDT Office Visit [facility] [address] [place] [phone] Joaquín Martinez MD [address] [place] [phone] documented as of this encounter Visit Diagnoses Not on filedocumented in this encounter Care Teams Blood Typer Relationship Specialty Start Date End Date Joaquín Martinez MD PCP - General Family Medicine 06/01/23 11/18/23 Joaquín Martinez MD [address] [place] [phone] PCP - General Family Medicine 11/19/23 Joaquín Martinez MD [address] [place] [phone] PCP - ACO Reach 09/02/24 documented as of this encounter
--- OUTSIDE RECORDS SUMMARY | 2025-02-10 14:29 | XMS_ITS | Clinical Summary ---
Author Organization [facility] Address [address] [place] [address] Care Team Providers Care Tree Topper Name Role Phone Joaquín Martinez MD Primary Care Provider [phone] Joaquín Martinez MD Unavailable Allergies No known active allergies Medications RA Col-Rite 100 MG capsule Take 100 mg by mouth in the morning and 100 mg before bedtime. 4 Active oxybutynin XL (Ditropan-XL) 10 MG 24 hr tabletIndications :Overactive bladder TAKE 1 TABLET BY MOUTH DAILY *do not crush, chew, or split* 30 tablet 2 5 Active furosemide (Lasix) 20 MG tabletIndications :Localized edema TAKE 1 TABLET BY MOUTH IN THE MORNING 30 tablet 2 5 Active amitriptyline (Elavil) 50 MG tabletIndications :Primary insomnia Take 1 tablet (50 mg) by mouth at bedtime 30 tablet 3 5 Active omeprazole (PriLOSEC) [address] capsuleIndication s:Gastroesophagea l reflux disease without esophagitis Take 1 capsule (40 mg) by mouth Daily before meals Do not crush or chew. 30 capsule 3 5 Active HYDROcodone-aceta minophen (Bolivar) 5-325 MG tablet 01/25/20 25 Discontinu ed(Reorder ) omeprazole (PriLOSEC) [address] capsuleIndication s:Gastroesophagea l reflux disease without esophagitis Take 1 capsule (40 mg) by mouth Daily before meals Do not crush or chew. 30 capsule 3 5 01/31/20 25 Discontinu ed(Reorder ) HYDROcodone-aceta minophen (Bolivar) 5-325 MG tabletIndications :Osteoarthritis of lumbosacral spine with radiculopathy Take 1 tablet by mouth 4 (four) times a day as needed for severe pain for up to 7 days 28 tablet 5 02/01/20 25 Active Problems Problem Noted Date Diagnosed Date Medicare annual wellness visit, subsequent 12/26 Assessment & Plan (12/26/2024 2:56 PM EDT): Due for labs. Discussed proper diet and regular aerobic exercise. Need aerobic exercise 5-6 days a week for 30 minutes at a time. Smaller portions and limit total calories. Tetanus every 10 years. Advised not to smoke. Gastroesophageal reflux disease without esophagi tis 12/26/2024 Chronic constipation 11/19/2023 COPD (chronic obstructive pulmonary disease) Assessment & Plan (12/26/2024 2:57 PM EDT): No symptoms and monitor. Assessment & Plan (11/19/2023 12:34 PM EDT): No symptoms and monitor. Lower extremity edema 11/19/2023 Assessment & Plan (11/19/2023 12:35 PM EDT): Edema controlled with lasix. Elevate legs PRN. 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 Difficult time ambulating and completing ADLs. Script for rolling walker with seat to patient to assist with mobility related ADLs. Use norco PRN. Discussed risks and benefits of opiate therapy. Warned medication is narcotic and risk of addiction. OARRS reviewed. Prediabetes 11/19/2023 Vitamin D deficiency 11/19/2023 Weakness 11/19/2023 Encounter for long-term current use of medicatio n 11/19/2023 Lipid screening 11/19/2023 Overactive bladder 07/03/2023 Assessment & Plan (11/19/2023 12:35 PM EDT): Worsening symptoms and resume medication. Encounters Date Type Department Care Team Description 01/30/2025 Refill [facility] [address] [place] [phone] Joaquín Martinez MD Gastroesophageal reflux disease without esophagitis 01/24/2025 Refill [facility] [address] [place] [phone] Joaquín Martinez MD Osteoarthritis of lumbosacral spine with radiculopathy (Primary Dx) 01/03/2025 Telephone [facility] [address] [place] [phone] Joaquín Martinez MD 12/26/2024 2:15 PM EDT Office Visit [facility] [address] [place] [phone] Joaquín Martinez MD Medicare annual wellness visit, subsequent (Primary Dx); Chronic obstructive pulmonary disease, unspecified COPD type (HCC); Primary insomnia; Gastroesophageal reflux disease without esophagitis; Encounter for long-term current use of medication; Prediabetes; Lipid screening; Fatigue, unspecified type 12/26/2024 Bamboo flowsheet [facility] [address] [place] [phone] Joaquín Martinez MD 12/18/2024 Refill [facility] [address] [place] [phone] Joaquín Martinez MD Overactive bladder; Localized edema 11/14/2024 Refill [facility] [address] [place] [phone] Joaquín Martinez MD from Last 3 Months Social History Tobacco Use Types Packs/Day Years Used Date Smoking Tobacco: Never Smokeless Tobacco: Never Tobacco Cessation:Counseling Given: Not Answered PHQ-2 Answer Date Recorded Patient Health Questionnaire-2 Score 0 12/26/2024 Comments Unknown Sex and Gender Information Value Date Recorded Sex Assigned at Not on file Legal Sex Female 6:53 PM EDT Gender Identity Not on file Sexual Orientation Not on file Last Filed Vital Signs Vital Sign Reading Time Taken Comments Blood Pressure 110/54 12/26/2024 2:14 PM EDT Pulse 54 12/26/2024 2:14 PM EDT Temperature 36.3 C (97.3 F) 12/26/2024 2:14 PM EDT Respiratory Rate 20 12/26/2024 2:14 PM EDT Oxygen Saturation 97% 12/26/2024 2:14 PM EDT Inhaled Oxygen Concentration - - Weight 61.7 kg (136 lb) 12/26/2024 2:14 PM EDT Height 165.1 cm (5' 5 ) 12/26/2024 2:14 PM EDT Body Mass Index 22.63 12/26/2024 2:14 PM EDT Plan of Treatment Upcoming Encounters Date Type Department Care Team (Late st Contact Info) Description 03/28/2025 2:00 PM EDT Office Visit [facility] [address] [place] [place] [address] Joaquín Martinez MD [address] [place] [address] Health Maintenance Due Date Last Done Comments Pneumococcal Vaccine: 65+ Years (1 of 2 - PCV) 963 Influenza Vaccine (#1) 2025 Medicare Annual Wellness (AWV) 12/26/2025 12/26/[address] [facility] Care Teams Tree Topper Relationship Specialty Start Date End Date Joaquín Martinez MD [address] [place] [address] PCP - General Family Medicine 11/19/23 Joaquín Martinez MD [address] [place] [address] PCP - ACO Re[facility] 09/02/24
--- OUTSIDE RECORDS SUMMARY | 2025-02-10 14:29 | XMS_ITS | Encounter Summary ---
Author Organization [facility] Address [address] [place] [address] Care Team Providers Care Automotive Service Manager Name Role Phone Joaquín Martinez MD Primary Care Provider [phone] Joaquín Martinez MD Unavailable Reason for Visit * Reason Onset Date Comments Med Refill 01/30/2025 Encounter Details Date Type Department Care Team (Late st Contact Info) Description 01/30/2025 [facility] [address] [place] [address] Joaquín Martinez MD [address] [place] [address] Gastroesophageal reflux disease without esophagitis Social History Tobacco Use Types Packs/Day Years Used Date Smoking Tobacco: Never Smokeless Tobacco: Never PHQ-2 Answer Date Recorded Patient Health Questionnaire-2 Score 0 12/26/2024 Comments Unknown Sex and Gender Information Value Date Recorded Sex Assigned at Not on file Legal Sex Female 6:53 PM EDT Gender Identity Not on file Sexual Orientation Not on file documented as of this encounter Miscellaneous Notes * Telephone Encounter - NATHANIEL PATEL - 01/30/2025 3:32 PM EDT [facility] * Telephone Encounter - Renée Agudelo - 01/30/2025 1:07 PM EDT Patient is asking for a 60 day refill. JN documented in this encounter Plan of Treatment Upcoming Encounters Date Type Department Care Team (Late st Contact Info) Description 03/28/2025 2:00 PM EDT Office Visit [facility] [address] [place] [address] Joaquín Martinez MD [address] [place] [phone] documented as of this encounter Visit Diagnoses Diagnosis Gastroesophageal reflux disease without esophagitis Esophageal reflux documented in this encounter Additional Health Concerns Assessment Noted Time PHQ-9 Depression Total Score: 6 12/27/19 2:00 PM EDT documented as of this encounter Care Teams Automotive Service Manager Relationship Specialty Start Date End Date Joaquín Martinez MD [address] [place] [place] [phone] PCP - General Family Medicine 11/19/23 Joaquín Martinez MD [address] [place] [phone] PCP - [facility] 09/02/24 documented as of this encounter
--- OUTSIDE RECORDS SUMMARY | 2025-02-10 14:36 | XMS_ITS | CCD ---
Author Organization [facility] Care Team Providers Care Product/Industry Consultant Name Role Phone DELMY, DR JOAQUÍN Rosas Primary Care Unavailable JOHN, DR DAX Benitez Consulting Unavailable JOHN, DR DAX Benitez Admitting Unavailable JOHN, DR DAX Benitez Attending Unavailable REY, LAURA Consulting Unavailable RORY, PATRICIA Consulting Unavailable DELMY, DR JOAQUÍN Rosas Primary Care Unavailable HAY, DR MCCARTY Admitting Unavailable HAY, DR MCCARTY Attending Unavailable ZIEBER, DR ELDER Benitez Consulting Unavailable ANA, DR MCCARTY Consulting Unavailable HANYEREEmmanuel, DR JOAQUÍN Rosas Primary Care Unavailable AUGUST, DR KEN Almanza Admitting Unavailable KOCH, DR KEN Almanza Attending Unavailable KOCH, DR KEN Almanza Consulting Unavailable SHARON, DR PATRICIA Jade Consulting Unavailable SEBASTIAN, ELIE Consulting Unavailable KLIPPER, PATRICIA Consulting Unavailable NADEREEmmanuel, DR JOAQUÍN Rosas Admitting Unavailable NADEREEmmanuel, DR JOAQUÍN Rosas Attending Unavailable NADEREEmmanuel, DR JOAQUÍN Rosas Primary Care Unavailable NADEREEmmanuel, DR JOAQUÍN Rosas Consulting Unavailable MISC, DR EDMONDSON Admitting Unavailable MISC, DR EDMONDSON Attending Unavailable NADEREEmmanuel, DR JOAQUÍN Rosas Primary Care Unavailable MISC, DR EDMONDSON Consulting Unavailable AICHHOLZ, STUDENT UNION CONSULTANT ROSEANN Admitting Unavailable AICHHOLZ, STUDENT UNION CONSULTANT ROSEANN Attending Unavailable NADVA, DR JOAQUÍN Rosas Primary Care Unavailable DELMY, DR JOAQUÍN Rosas Primary Care Unavailable HAY, DR MCCARTY Admitting Unavailable ANA, DR MCCARTY Attending Unavailable HAY, DR MCCARTY Consulting Unavailable KLIPPSHANNON, PATRICIA Consulting Unavailable Joaquín Brock MD Primary Care Provider Joaquín Brock MD Unavailable JOAQUÍN BROCK Attending Unavailable Medications Current Medications Medication Drug Class(es) Dates Sig (Normalized) Sig (Original) acetaminophen 325 mg / HYDROcodone bitartrate 5 mg oral tablet (8 sources) Opioid Agonist Start: 01-24-2025 End: 01-31-2025 take 1 tablet by mouth four times daily as needed for pain HYDROcodone-acetamin ophen (Guffey) 5-325 MG tablet Indications: Osteoarthritis of lumbosacral spine with radiculopathy Take 1 tablet by mouth 4 (four) times a day as needed for severe pain for up to 7 days 28 tablet 01/24/2025 01/31/2025 Active Start: 05-18-2024 End: 05-26-2024 take 1 tablet by mouth four times daily as needed for pain HYDROcodone-acetaminophen (Guffey) 5-325 MG tablet Indications: Osteoarthritis of lumbosacral spine with radiculopathy Take 1 tablet by mouth 4 (four) times a day as needed for severe pain for up to 7 days 28 tablet 05/19/2024 05/26/2024 Active Start: 04-14-2024 End: 04-21-2024 take 1 tablet by mouth four times daily as needed for pain HYDROcodone-acetaminophen (Guffey) 5-325 MG tablet Indications: Osteoarthritis of lumbosacral spine with radiculopathy Take 1 tablet by mouth 4 (four) times a day as needed for severe pain for up to 7 days 28 tablet 04/14/2024 04/21/2024 Active End: 01-24-2025 HYDROcodone-acetaminophen (N orco) 5-325 MG tablet 01/24/2025 Discontinued (Reorder) amitriptyline hydrochloride 50 mg oral tablet (9 sources) Tricyclic Antidepressant Start: 01-03-2025 take 1 tablet by mouth at bedtime amitriptyline (Elavil) 50 MG tablet Indications: Primary insomnia Take 1 tablet (50 mg) by mouth at bedtime 30 tablet 3 01/03/2025 Active Start: 05-08-2023 End: 12-26-2024 take 1 tablet by mouth at bedtime amitriptyline (Elavil) 75 MG tablet Indications: Primary insomnia Take 1 tablet (75 mg) by mouth at bedtime 30 tablet 5 12/26/2024 Active docusate sodium 100 mg oral capsule (7 sources) Start: 10-05-2023 take 1 capsule by mouth in the morning RA Col-Rite 100 MG capsule Take 100 mg by mouth in the morning and 100 mg before bedtime. 10/05/2023 Active furosemide 20 mg oral tablet (7 sources) Loop Diuretic Start: 12-20-2024 take 1 tablet by mouth in the morning furosemide (Lasix) 20 MG tablet Indications: Localized edema TAKE 1 TABLET BY MOUTH IN THE MORNING 30 tablet 2 12/20/2024 Active Start: 05-16-2024 take 1 tablet by radha th in the morning furosemide (Lasix) 20 MG tablet Indications: Localized edema TAKE 1 TABLET BY MOUTH IN THE MORNING 30 tablet 5 05/16/2024 Active Start: 04-13-2024 take 1 tablet by radha th in the morning furosemide (Lasix) 20 MG tablet Indications: Localized edema TAKE 1 TABLET BY MOUTH IN THE MORNING 30 tablet 04/13/2024 Active omeprazole 40 mg delayed release oral capsule (3 sources) Proton Pump Inhibitor Start: 12-26-2024 take 1 capsule by mouth once daily before mealtime omeprazole (PriLOSEC) [address] capsule Indications: Gastroesophageal reflux disease without esophagitis Take 1 capsule (40 mg) by mouth Daily before meals Do not crush or chew. 30 capsule 3 12/26/2024 Active 24 hr oxybutynin chloride 10 mg extended release oral tablet (7 sources) Cholinergic Muscarinic Antagonist Start: 12-20-2024 take 1 tablet by mouth once daily oxybutynin XL (Ditropan-XL) 10 MG 24 hr tablet Indications: Overactive bladder TAKE 1 TABLET BY MOUTH DAILY *do not crush, chew, or split* 30 tablet 2 12/20/2024 Active Start: 05-03-2024 oxybutynin XL (Ditropan-XL) 10 MG 24 hr tablet Indications: Overactive bladder TAKE 1 TABLET EVERY DAY (do not crush, chew and/or divide) 30 tablet 2 05/03/2024 Active Start: 11-19-2023 take 1 tablet by radha th once daily oxybutynin XL (Ditropan-XL) 10 MG 24 hr tablet Indications: Overactive bladder Take 1 tablet (10 mg) by mouth Daily Do not crush, chew, or split. 30 tablet 5 11/19/2023 Active Completed/Discontinued Medications Medication Drug Class(es) Dates Sig (Normalized) Sig (Original) benzonatate 200 mg oral capsule (6 sources) Non-narcotic Antitussive Start: 10-05-2023 End: 12-26-2024 take 1 capsule by mouth three times daily as needed benzonatate (Tessalon) 200 MG capsule Take 200 mg by mouth 3 (three) times a day as needed 10/05/2023 12/26/2024 Discontinued Problems Active Problems Problem Classification Problem Date Documented Date Episodic/Chronic Chronic kidney disease (1 source) Chronic kidney disease, unspecified; Translations: [CHRONIC KIDNEY DISEASE UNSPECIFIED] Onset: 10-30-2021 Chronic Chronic obstructive pulmonary disease and bronchiectasis (10 sources) Chronic obstructive pulmonary disease, unspecified; Translations: [Chronic obstructive lung disease] Onset: 08-01-2022 11-19-2023 Chronic Deficiency and other anemia (1 source) Anemia, unspecified; Translations: [ANEMIA UNSPECIFIED] Onset: 08-01-2022 Episodic Diabetes mellitus without complication (1 source) Type 2 diabetes mellitus without complications; Translations: [TYPE 2 DM WITHOUT COMPLICATIONS] Onset: 10-30-2021 Chronic Esophageal disorders (5 sources) Gastroesophageal reflux disease without esophagitis; Translations: [Gastro-esophageal reflux disease without esophagitis] Onset: 12-26-2024 12-26-2024 Chronic Miscellaneous mental health disorders (3 sources) Psychophysiologic insomnia; Translations: [Primary insomnia] Onset: 10-30-2021 12-26-2024 Chronic Nutritional deficiencies (8 sources) Vitamin D deficiency, unspecified; Translations: [Vitamin D deficiency] Onset: 08-01-2022 11-19-2023 Chronic Osteoarthritis (1 source) Unilateral primary osteoarthritis, right knee; Translations: [UNI PRIM OSTEOARTHRITIS RT KNEE] Onset: 08-01-2022 Chronic Other aftercare (5 sources) Other analytical lead (current) drug therapy; Translations: [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 DRUG THERAPY] Onset: 10-08-2021 Episodic Other connective tissue disease (1 source) Presence of left artificial knee joint; Translations: [PRESENCE LEFT ARTIFICIAL KNEE JOINT] Onset: 08-01-2022 Chronic Other connective tissue disease (1 source) Presence of unspecified artificial knee joint; Translations: [PRESENCE UNS ARTIFICIAL KNEE JOINT] Onset: 11-21-2021 Chronic Other diseases of bladder and urethra (7 sources) Overactive bladder; Translations: [Overactive bladder] Onset: 07-03-2023 07-03-2023 Chronic Other hereditary and degenerative nervous system conditions (7 sources) Essential tremor; Translations: [Essential tremor] Onset: 11-19-2023 11-19-2023 Chronic Other lower respiratory disease (1 source) Dyspnea, unspecified; Translations: [DYSPNEA UNSPECIFIED] Onset: 08-01-2022 Episodic Other nervous system disorders (1 source) Other chronic pain; Translations: [OTHER CHRONIC PAIN] Onset: 11-21-2021 Chronic Residual codes; unclassified (1 source) Acquired absence of other specified parts of digestive tract; Translations: [ACQ ABSENCE OTH PART DIGESTV TRACT] Onset: 08-01-2022 Episodic Residual codes; unclassified (1 source) Acquired absence of both cervix and uterus; Translations: [ACQUIRED ABSENCE BOTH CERVIX AND UTERUS] Onset: 08-01-2022 Episodic Spondylosis; intervertebral disc disorders; other back problems (12 sources) Other intervertebral disc degeneration, lumbar region; Translations: [Lumbosacral spondylosis with radiculopathy] Onset: 08-01-2022 05-18-2024 Chronic Unclassified (3 sources) COUGH, UNSPECIFIED; Translations: [COUGH, UNSPECIFIED] Onset: 08-01-2022 Unclassified (1 source) CHRN KIDNEY DISEASE STG 3 UNSP; Translations: [CHRN KIDNEY DISEASE STG 3 UNSP] Onset: 08-01-2022 Unclassified (1 source) CONTACT W/AND (SUSP) EXPOS COVID-19; Translations: [CONTACT W/AND (SUSP) EXPOS COVID-19] Onset: 08-01-2022 Past or Other Problems Problem Classification Problem Date Documented Da te Episodic/Chronic Abdominal pain (4 sources) Unspecified abdominal pain; Translations: [UNSPECIFIED ABDOMINAL PAIN] Onset: 11-16-2021 Episodic Diabetes mellitus without complication (10 sources) Prediabetes; Translations: [Prediabetes] Onset: 08-01-2022 11-19-2023 Episodic Fluid and electrolyte disorders (1 source) Dehydration; Translations: [DEHYDRATION] Onset: 08-13-2021 Episodic Malaise and fatigue (13 sources) Weakness; Translations: [Asthenia] Onset: 08-10-2021 Episodic Mood disorders (3 sources) Mood disorders Onset: 12-26-2024 12-26-2024 Other aftercare (1 source) admeasurer (current) use of opiate analgesic; Translations: [[facility] CURRNT USE OPIATE ANALGES] Onset: 11-21-2021 Episodic Other aftercare (9 sources) Long-term current use of drug therapy; Translations: [Other nursing home (current) drug therapy] Onset: 11-19-2023 11-19-2023 Episodic Other circulatory disease (1 source) Other hypotension; Translations: [OTHER HYPOTENSION] Onset: 08-13-2021 Episodic Other circulatory disease (7 sources) Orthostatic hypotension; Translations: [Orthostatic hypotension] Onset: 11-19-2023 11-19-2023 Episodic Other gastrointestinal disorders (1 source) Constipation, unspecified; Translations: [CONSTIPATION UNSPECIFIED] Onset: 11-21-2021 Episodic Other gastrointestinal disorders (1 source) Other specified diseases of intestine; Translations: [OTHER SPECIFIED DISEASES INTESTINE] Onset: 11-21-2021 Episodic Other gastrointestinal disorders (7 sources) Chronic constipation; Translations: [Other constipation] Onset: 11-19-2023 11-19-2023 Episodic Other lower respiratory disease (1 source) Shortness of breath; Translations: [SHORTNESS OF BREATH] Onset: 08-13-2021 Episodic Other nervous system disorders (1 source) Anesthesia of skin; Translations: [ANESTHESIA OF SKIN] Onset: 03-13-2022 Episodic Other nervous system disorders (1 source) Paresthesia of skin; Translations: [PARESTHESIA OF SKIN] Onset: 03-13-2022 Episodic Other screening for suspected conditions (not mental disorders or infectious disease) (9 sources) Patient encounter status; Translations: [Encounter for screening for lipoid disorders] Onset: 11-19-2023 11-19-2023 Episodic Residual codes; unclassified (7 sources) Edema of lower extremity; Translations: [Localized edema] Onset: 11-19-2023 11-19-2023 Episodic Residual codes; unclassified (7 sources) Insomnia; Translations: [Insomnia, unspecified] Onset: 11-19-2023 11-19-2023 Episodic Screening and history of mental health and substance abuse codes (1 source) Personal history of nicotine dependence; Translations: [PERSONAL HISTORY OF NICOTINE DEPEND] Onset: 08-13-2021 Episodic Spondylosis; intervertebral disc disorders; other back problems (5 sources) Radiculopathy, lumbosacral region; Translations: [Dorsalgia, unspecified] Onset: 11-21-2021 Episodic Unclassified (1 source) COUGH, UNSPECIFIED; Translations: [COUGH, UNSPECIFIED] Onset: 07-30-2022 Results Test Name Value Interpretation Reference Range Facility BNPon 07-30-2022 Natriuretic peptide B (Bld) [Mass/Vol] 61.0 pg/mL Normal <=1,800.0 [facility] Comment on above: Performed By: #### A 1C #### [facility] [address] [place] [address] Dr. Rossana Ryan CARDIAC DAX ADMITon 023 CK [Catalytic activity/Vol] 20 U/L Critically low 26-192 [facility] Comment on above: Performed By: #### ANNIE ALMANZARICRO #### [facility] [address] [place] [address] Dr. Rossana Ryan CK.MB [Mass/Vol] ng/mL Normal <=3.60 [facility] Comment on above: Performed By: #### GUILLE ALMANZARRO #### [facility] [address] [place] [address] Dr. Rossana Ryan HSTROP 6.8 pg/mL Normal 4.0-51.3 [facility] Comment on above: Result Comment: CUT- OFF POINTS HAVE BEEN ESTABLISHED BASED ON THE FOURTH UNIVERSAL DEFINITIONS OF MYOCARDIAL INFARCTION. THE UPPER REFERENCE LIMIT (URL) OF TROPONIN, DEFINED THE 99TH PERCENTILE OF cTnI DISTRIBUTION IN A REFERENCE POPULATION, HAS BEEN CONFIRMED THE DECISION THRESHOLD FOR VA DIAGNOSIS. Performed By: #### Archie HENDERSON UMICRO #### [facility] [address] [place] [address] Dr. Rossana Ryan MARCELA 31 ng/mL Normal 9-82 [facility] Comment on above: Performed By: #### Archie HENDERSON UMICRO #### [facility] [address] [place] [address] Dr. Rossana Ryan CBC AUTO DIFFon 07-30-2022 BASO # 0.0 103/ul Normal 0.0-0.1 [facility] Comment on above: Performed By: #### Archie HENDERSON, UMICRO #### [facility] [address] [place] [address] Dr. Rossana Ryan Basophils/100 WBC (Bld) 0.6 % Normal 0.2-2.0 [facility] Comment on above: Performed By: #### ROD ALMANZAR #### [facility] [address] [place] [address] Dr. Rossana Ryan EO # 0.1 103/ul Normal 0.0-0.7 [facility] Comment on above: Performed By: #### ROD ALMANZAR #### [facility] [address] [place] [address] Dr. Rossana Ryan Eosinophils/100 WBC (Bld) 1.5 % Normal 0.9-7.0 [facility] Comment on above: Performed By: #### ROD ALMANZAR #### [facility] [address] [place] [address] Dr. Rossana Ryan Erythrocyte distribution width (RBC) [Ratio] 13.4 % Normal 11.0-15.0 [facility] Comment on above: Performed By: #### ROD ALMANZAR #### [facility] [address] [place] [address] Dr. Rossana Ryan Hematocrit (Bld) [Volume fraction] 29.2 % Critically low 36.0-48.0 [facility] Comment on above: Performed By: #### ROD ALMANZAR #### [facility] [address] [place] [address] Dr. Rossana Ryan Hemoglobin (Bld) [Mass/Vol] 9.5 g/dL Critically low 12.0-16.0 [facility] Comment on above: Performed By: #### GUILLE ALMANZARRO #### [facility] [address] [place] [address] Dr. Rossana Ryan IG # 0.01 10e3/ul Normal 0.00-0.03 [facility] Comment on above: Performed By: #### GUILLE ALMANZARRO #### [facility] [address] [place] [address] Dr. Rossana Ryan IG % 0.2 % Normal 0.0-0.5 [facility] Comment on above: Performed By: #### ROD ALMANZAR #### [facility] [address] [place] [address] Dr. Rossana Ryan LYMPH # 1.3 103/ul Normal 1.2-3.8 [facility] Comment on above: Performed By: #### E RUR, UMICRO #### [facility] [address] [place] [address] Dr. Rossana Ryan Lymphocytes/100 WBC (Bld) 24.2 % Normal 20.5-60.0 [facility] Comment on above: Performed By: #### E RUR, UMICRO #### [facility] [address] [place] [address] Dr. Rossana Ryan MANUAL DIFF REQ NO Normal [facility] Comment on above: Performed By: #### E RUR, UMICRO #### [facility] [address] [place] [address] Dr. Rossana Ryan MCH (RBC) [Entitic mass] 29.1 pg Normal 26.7-34.0 [facility] Comment on above: Performed By: #### E RUEmmanuel, UMICRO #### [facility] [address] [place] [address] Dr. Rossana Ryan MCHC (RBC) [Mass/Vol] 32.5 g/dL Normal 29.9-35.2 [facility] Comment on above: Performed By: #### E BEATRIZ, UMICRO #### [facility] [address] [place] [address] Dr. Rossana Ryan MCV (RBC) [Entitic vol] 89.6 fL Normal 81.0-99.0 [facility] Comment on above: Performed By: #### E RUR, UMICRO #### [facility] [address] [place] [address] Dr. Rossana Ryan MONO # 0.3 103/ul Normal 0.3-0.8 [facility] Comment on above: Performed By: #### E RUR, UMICRO #### [facility] [address] [place] [address] Dr. Rossana Ryan Monocytes/100 WBC (Bld) 6.1 % Normal 1.7-12.0 [facility] Comment on above: Performed By: #### ROD ALMANZAR #### [facility] [address] [place] [address] Dr. Rossana Ryan NEUT # 3.5 103/ul Normal 1.4-6.5 [facility] Comment on above: Performed By: #### ROD ALMANZAR #### [facility] [address] [place] [address] Dr. Rossana Ryan Neutrophils/100 WBC (Bld) 67.4 % Normal 43.0-75.0 [facility] Comment on above: Performed By: #### ROD ALMANZAR #### [facility] [address] [place] [address] Dr. Rossana Ryan Platelet mean volume (Bld) [Entitic vol] 8.3 fL Critically low 9.5-13.5 [facility] Comment on above: Performed By: #### ROD ALMANZAR #### [facility] [address] [place] [address] Dr. Rossana Ryan PLT 236 103/ul Normal 150-450 [facility] Comment on above: Performed By: #### ROD ALMANZAR #### [facility] [address] [place] [address] Dr. Rossana Ryan RBC 3.26 106/ul Critically low 4.20-5.40 [facility] Comment on above: Performed By: #### ROD ALMANZAR #### [facility] [address] [place] [address] Dr. Rossana Ryan WBC 5.3 103/ul Normal 4.0-11.0 [facility] Comment on above: Performed By: #### ROD ALMANZAR #### [facility] [address] [place] [address] Dr. Rossana Ryan CULTURE BLOODon 07-30-2022 Microscopic examination of blood, culture Culture Observations: NO GROWTH AT 5 DAYS. Normal [facility] Comment on above: Performed By: #### ROD ALMANZAR #### [facility] [address] [place] [address] Dr. Rossana Ryan Microscopic examination of blood, culture Culture Observations: NO GROWTH AT 5 DAYS. Normal [facility] Comment on above: Performed By: #### E ROD HENDERSON #### [facility] [address], [place] [address] Dr. Rossana Ryan Covid-19 PCR ([facility])on SARS-CoV-2 (COVID-19) RNA SHANNON+probe Ql (Unsp spec) Not detected Normal NOT DETECTED [facility] Comment on above: Result Comment: When diagnostic testing is negative, the possibility of a false negative should be considered in the context of a patient's recent exposures and the presence of clinical signs and symptoms consistent with SARS-CoV-2. This test is not yet approved or cleared by the [place] FDA. When there are no FDA-approved or cleared tests available, and other criteria are met, FDA can make tests available under an emergency access mechanism called an Emergency Use Authorization (EUA). The EUA for this test is supported by the [place] of Health and Human Service's declaration that circumstances exist to justify the emergency use of in vitro diagnostics for the detection and/or diagnosis of the virus that causes COVID-19. This EUA will remain in effect for the duration of the COVID-19 declaration justifying emergency of IVDs, unless it is terminated or revoked by the FDA (after which the test may no longer be used). Performed By: #### [facility] #### [facility] [address] [place] [address] Dr. Rossana Ryan INFLUENZA A AND B AGon 07-30 INFLUANEGH SEE BELOW Normal [facility] Comment on above: Result Comment: Nega tive for Flu A protein angiten. Infection due to Flu A cannot be ruled out. Flu A angiten in the sample may be below the detection limit of the test. Performed By: #### A 1C #### [facility] [address] [place] [address] Dr. Rossana Ryan INFLUBNEG SEE BELOW Normal [facility] Comment on above: Result Comment: Nega tive for Flu B protein antigen. Infection due to Flu B cannot be ruled out. Flu B antigen in the sample may be below the detection limit of the test. Performed By: #### A 1C #### [facility] [address] [place] [address] Dr. Rossana Ryan INFLUENZA A AG Negative Normal NEGATIVE SEE COMMENT [facility] Comment on above: Performed By: #### A 1C #### [facility] [address] [place] [address] Dr. Rossana Ryan INFLUENZA B AG Negative Normal NEGATIVE SEE COMMENT [facility] Comment on above: Performed By: #### A 1C #### [facility] [address] [place] [address] Dr. Rossana Ryan LACTATE/LACTIC ACIDon 2022 Lactate [Moles/Vol] 1.7 mmol/L Normal 0.4-1.9 [facility] Comment on above: Performed By: #### E ROD HENDERSON #### [facility] [address] [place] [address] Dr. Rossana Ryan PROF 14(COMP METB)on 023 Albumin [Mass/Vol] 2.6 g/dL Critically low 3.4-5.0 [facility] Comment on above: Performed By: #### A 1C #### [facility] [address] [place] [address] Dr. Rossana Ryan Albumin/Globulin [Mass ratio] 0.7 {ratio} Normal [facility] Comment on above: Performed By: #### A 1C #### [facility] [address] [place] [address] Dr. Rossana Ryan ALP [Catalytic activity/Vol] 72 U/L Normal 46-116 [facility] Comment on above: Performed By: #### A 1C #### [facility] [address] [place] [address] Dr. Rossana Ryan ALT [Catalytic activity/Vol] U/L Critically low 14-59 [facility] Comment on above: Performed By: #### A 1C #### [facility] [address] [place] [address] Dr. Rossana Ryan Anion gap [Moles/Vol] 7.2 mmol/L Normal [facility] Comment on above: Performed By: #### A 1C #### [facility] [address] [place] [address] [address] Rossana Ryan AST [Catalytic activity/Vol] 16 U/L Normal 15-37 [facility] Comment on above: Performed By: #### A 1C #### [facility] [address] [address] [address] Rossana Ryan Bilirubin [Mass/Vol] 0.3 mg/dL Normal 0.2-1.0 [facility] Comment on above: Performed By: #### A 1C #### [facility] [address] [place] [address] [address] Rossana Ryan Calcium [Mass/Vol] 8.5 mg/dL Normal 8.5-10.1 [facility] Comment on above: Performed By: #### A 1C #### [facility] [address] [place] [address] [address] Rossana Ryan Chloride [Moles/Vol] 104 mmol/L Normal 98-107 [facility] Comment on above: Performed By: #### A 1C #### [facility] [address] [address] [address] Rossana Ryan CO2 [Moles/Vol] 33.0 mmol/L Critically high 21.0-32.0 [facility] Comment on above: Performed By: #### A 1C #### [facility] [address] [address] [address] Rossana Ryan Creatinine [Mass/Vol] 0.95 mg/dL Normal 0.55-1.02 [facility] Comment on above: Performed By: #### A 1C #### [facility] [address] [address] [address] Rossana Ryan EGFR-AF LAO >60 Normal >=60 [facility] Comment on above: Performed By: #### A 1C #### [facility] [address] [address] [address] Rossana Ryan EGFR-NON AF LAO 57 mL/min/1.73m2 Critically low >=60 [facility] Comment on above: Performed By: #### A 1C #### [facility] [address] [address] [address] Rossana Ryan Globulin (S) [Mass/Vol] 3.8 g/dL Normal [facility] Comment on above: Performed By: #### A 1C #### [facility] [address] [address] [address] Rossana Ryan Glucose [Mass/Vol] 109 mg/dL Critically high 74-106 [facility] Comment on above: Performed By: #### A 1C #### [facility] [address] [address] [address] Rossana Ryan Potassium [Moles/Vol] 3.2 mmol/L Critically low 3.5-5.1 [facility] Comment on above: Performed By: #### A 1C #### [facility] [address] [place] [address] Dr. Rossana Ryan Protein [Mass/Vol] 6.4 g/dL Normal 6.4-8.2 [facility] Comment on above: Performed By: #### A 1C #### [facility] [address] [address] [address] Rossana Ryan Sodium [Moles/Vol] 141 mmol/L Normal 136-145 [facility] Comment on above: Performed By: #### A 1C #### [facility] [address] [place] [address] Dr. Rossana Ryan Urea nitrogen [Mass/Vol] 15.0 mg/dL Normal 7.0-18.0 [facility] Comment on above: Performed By: #### A 1C #### [facility] [address] [address] [address] Rossana Ryan Urea nitrogen/Creatinine [Mass ratio] 15.8 mg/mg Normal [facility] Comment on above: Performed By: #### A 1C #### [facility] [address] [address] [address] Rossana Ryan XR CHEST 1 Von 07-30-2022 XR CHEST 1 V EXAMINATION: XR CHEST 1 V HISTORY: COUGH COMPARISON: XR chest 11/15/2021 FINDINGS: LUNGS: Hyperexpanded lungs with mild stranding within lung bases bilaterally. VASCULATURE: No increased pulmonary vasculature. PLEURA: No pneumothorax, effusion, or pleural thickening. CARDIAC: No cardiomegaly or cardiac silhouette abnormality. MEDIASTINUM: No visible mass or adenopathy. BONES: No fracture or visible bone lesion. OTHER: Negative. IMPRESSION: 1. Hyperexpanded lungs suggestive of COPD. 2. Mild bibasilar infiltrates versus atelectasis suspected to overlie chronic bibasilar fibrotic changes; increased since prior study. Electronically authenticated by: ELDER MABRY Date: 2022-07-30 10:57 Normal [facility] PROTEIN ELECTROPHERESISon Albumin [Mass/Vol] 3.3 g/dL Normal 2.9-4.4 [facility] Comment on above: Performed By: #### P RTELEC #### [facility] [address] [place] [address] Dr. Rossana Ryan Albumin/Globulin [Mass ratio] 1.2 {ratio} Normal 0.7-1.7 [facility] Comment on above: Performed By: #### P RTELEC #### [facility] [address] [address] [address] Rossana Ryan Txnrz-1-Tdlfgsqk 0.2 g/dL Normal 0.0-0.4 [facility] Comment on above: Performed By: #### P RTELEC #### [facility] [address] [address] [address] Rossana Ryan Tddlr-9-Uhdyldbo 0.7 g/dL Normal 0.4-1.0 [facility] Comment on above: Performed By: #### P RTELEC #### [facility] [address] [address] [address] Rossana Ryan Beta Globulin 0.9 g/dL Normal 0.7-1.3 [facility] Comment on above: Performed By: #### P RTELEC #### [facility] [address] [address] [address] Rossana Ryan Gamma Globulin 0.9 g/dL Normal 0.4-1.8 [facility] Comment on above: Performed By: #### P RTELEC #### [facility] [address] [place] [address] Dr. Rossana Ryan Globulin (S) [Mass/Vol] 2.8 g/dL Normal 2.2-3.9 [facility] Comment on above: Performed By: #### P RTELEC #### [facility] [address] [place] [address] Dr. Rossana Ryan M-Vivek Not Observed Normal Not Observed [facility] Comment on above: Performed By: #### P RTELEC #### [facility] [address] [place] [address] Dr. Rossana Ryan PDF . Normal [facility] Comment on above: Performed By: #### P RTELEC #### [facility] [address] [place] [address] Dr. Rossana Ryan Please note: Comment Normal [facility] Comment on above: Result Comment: Prot ein electrophoresis scan will follow via computer, mail, or bereavement program coordinator delivery. Performed By: #### P RTELEC #### [facility] [address] [place] [address] Dr. Rossana Ryan Protein [Mass/Vol] 6.1 g/dL Normal 6.0-8.5 [facility] Comment on above: Performed By: #### P RTELEC #### [facility] [address] [place] [address] Dr. Rossana Ryan TSHon 03-12-2022 TSH 1.075 uIU/mL Normal 0.358-3.740 [facility] Comment on above: Performed By: #### B MP #### [facility] [address] [place] [address] Dr. Rossana Ryan VIT B12 AND FOLATEon 022 Cobalamin (Vitamin B12) [Mass/Vol] 470.0 pg/mL Normal 193.0-986.0 [facility] Comment on above: Performed By: #### B MP #### [facility] [address] [place] [address] Dr. Rossana Ryan FOLATE 8.90 ng/mL Normal 8.60-58.90 [facility] Comment on above: Performed By: #### B MP #### [facility] [address] [address] [address] Rossana Ryan PROF CHEM 8 (BAS METB)on Anion gap [Moles/Vol] 12.3 mmol/L Normal [facility] Comment on above: Performed By: #### B MP #### [facility] [address] [address] [address] Rossana Ryan Calcium [Mass/Vol] 8.3 mg/dL Critically low 8.5-10.1 [facility] Comment on above: Performed By: #### B MP #### [facility] [address] [place] [address] Dr. Rossana Ryan Chloride [Moles/Vol] 107 mmol/L Normal 98-107 [facility] Comment on above: Performed By: #### B MP #### [facility] [address] [place] [address] Dr. Rossana Ryan CO2 [Moles/Vol] 26.8 mmol/L Normal 21.0-32.0 [facility] Comment on above: Performed By: #### B MP #### [facility] [address] [place] [address] Dr. Rossana Ryan Creatinine [Mass/Vol] 1.03 mg/dL Critically high 0.55-1.02 [facility] Comment on above: Performed By: #### B MP #### [facility] [address] [place] [address] Dr. Rossana Ryan EGFR-AF LAO >60 Normal >=60 [facility] Comment on above: Performed By: #### B MP #### [facility] [address] [address] [address] Rossana Ryan EGFR-NON AF LAO 52 mL/min/1.73m2 Critically low >=60 [facility] Comment on above: Performed By: #### B MP #### [facility] [address] [place] [address] Dr. Rossana Ryan Glucose [Mass/Vol] 109 mg/dL Critically high 74-106 [facility] Comment on above: Performed By: #### B MP #### [facility] [address] [address] [address] Rossana Ryan Potassium [Moles/Vol] 4.1 mmol/L Normal 3.5-5.1 [facility] Comment on above: Performed By: #### B MP #### [facility] [address] [address] [address] Rossana Ryan Sodium [Moles/Vol] 142 mmol/L Normal 136-145 [facility] Comment on above: Performed By: #### B MP #### [facility] [address] [address] [address] Rossana Ryan Urea nitrogen [Mass/Vol] 20.0 mg/dL Critically high 7.0-18.0 [facility] Comment on above: Performed By: #### B MP #### [facility] [address] [address] [address] Rossana Ryan Urea nitrogen/Creatinine [Mass ratio] 19.4 mg/mg Normal [facility] Comment on above: Performed By: #### B MP #### [facility] [address] [address] [address] Rossana Ryan XR ABD FLAT_UPon 11-17-2021 XR ABD FLAT_UP EXAMINATION: XR ABD FLAT_UP HISTORY: constipation COMPARISON: 11/15/2021 FINDINGS: BOWEL GAS PATTERN: Gaseous distention of the colon. Significant reduction in overall stool load with stool identified in the sigmoid colon and rectum. FREE AIR: None. CALCIFICATIONS: None significant. BONES: No fracture or visible bone lesion. L5-S1 transpedicular fusion. Contour deformity left superior pubic ramus, remote fractures favored OTHER: Increased interstitial lung markings in the lung bases, chronic changes are suspected. IMPRESSION: Interval reduction in stool load, residual stool identified in the sigmoid colon and rectum Electronically authenticated by: PATRICIA HERRERA Date: 2021-11-17 09:26 Normal [facility] Covid-19 PCR (CVDTB)on 10-26 SARS-CoV-2 (COVID-19) RNA SHANNON+probe Ql (Unsp spec) Not detected Normal NOT DETECTED [facility] Comment on above: Result Comment: This test is not yet approved or cleared by the [place] FDA. When there are no FDA-approved or cleared tests available, and other criteria are met, FDA can make tests available under an emergency access mechanism called an Emergency Use Authorization (EUA). The EUA for this test is supported by the [place] of Health and Human Service's (HHS's) declaration that circumstances exist to justify the emergency use of in vitro diagnostics for the detection and/or diagnosis of the virus that causes COVID-19. This EUA will remain in effect (meaning this test can be used) for the duration of the COVID-19 declaration justifying emergency of IVDs, unless it is terminated or revoked by FDA (after which the test may no longer be used). When diagnostic testing is negative, the possibility of a false negative should be considered in the context of a patient's recent exposures and the presence of clinical signs and symptoms consistent with SARS-CoV-2. Performed By: #### A 1C #### [facility] [address] [place] [address] Dr. Rossana Ryan CBC AUTO DIFFon 11-15-2021 BASO # 0.0 103/ul Normal 0.0-0.1 [facility] Comment on above: Performed By: #### A 1C #### [facility] [address] [place] [address] Dr. Rossana Ryan Basophils/100 WBC (Bld) 0.4 % Normal 0.2-2.0 [facility] Comment on above: Performed By: #### A 1C #### [facility] [address] [place] [address] Dr. Rossana Ryan EO # 0.3 103/ul Normal 0.0-0.7 [facility] Comment on above: Performed By: #### A 1C #### [facility] [address] [place] [address] Dr. Rossana Ryan Eosinophils/100 WBC (Bld) 4.1 % Normal 0.9-7.0 [facility] Comment on above: Performed By: #### A 1C #### [facility] [address] [place] [address] Dr. Rossana Ryan Erythrocyte distribution width (RBC) [Ratio] 13.2 % Normal 11.0-15.0 [facility] Comment on above: Performed By: #### A 1C #### [facility] [address] [place] [address] Dr. Rossana Ryan Hematocrit (Bld) [Volume fraction] 33.8 % Critically low 36.0-48.0 [facility] Comment on above: Performed By: #### A 1C #### [facility] [address] [place] [address] Dr. Rossana Ryan Hemoglobin (Bld) [Mass/Vol] 11.3 g/dL Critically low 12.0-16.0 [facility] Comment on above: Performed By: #### A 1C #### [facility] [address] [place] [address] Dr. Rossana Ryan IG # 0.03 10e3/ul Normal 0.00-0.03 [facility] Comment on above: Performed By: #### A 1C #### [facility] [address] [place] [address] Dr. Rossana Ryan IG % 0.4 % Normal 0.0-0.5 [facility] Comment on above: Performed By: #### A 1C #### [facility] [address] [place] [address] Dr. Rossana Ryan LYMPH # 2.0 103/ul Normal 1.2-3.8 [facility] Comment on above: Performed By: #### A 1C #### [facility] [address] [place] [address] Dr. Rossana Ryan Lymphocytes/100 WBC (Bld) 28.6 % Normal 20.5-60.0 [facility] Comment on above: Performed By: #### A 1C #### [facility] [address] [place] [address] Dr. Rossana Ryan MANUAL DIFF REQ NO Normal [facility] Comment on above: Performed By: #### A 1C #### [facility] [address] [place] [address] Dr. Rossana Ryan MCH (RBC) [Entitic mass] 32.5 pg Normal 26.7-34.0 [facility] Comment on above: Performed By: #### A 1C #### [facility] [address] [address] [address] Rossana Ryan MCHC (RBC) [Mass/Vol] 33.4 g/dL Normal 29.9-35.2 [facility] Comment on above: Performed By: #### A 1C #### [facility] [address] [address] [address] Rossana Ryan MCV (RBC) [Entitic vol] 97.1 fL Normal 81.0-99.0 [facility] Comment on above: Performed By: #### A 1C #### [facility] [address] [address] [address] Rossana Ryan MONO # 0.6 103/ul Normal 0.3-0.8 [facility] Comment on above: Performed By: #### A 1C #### [facility] [address] [address] [address] Rossana Ryan Monocytes/100 WBC (Bld) 8.0 % Normal 1.7-12.0 [facility] Comment on above: Performed By: #### A 1C #### [facility] [address] [address] [address] Rossana Ryan NEUT # 4.0 103/ul Normal 1.4-6.5 [facility] Comment on above: Performed By: #### A 1C #### [facility] [address] [address] [address] Rossana Ryan Neutrophils/100 WBC (Bld) 58.5 % Normal 43.0-75.0 [facility] Comment on above: Performed By: #### A 1C #### [facility] [address] [address] [address] Rossana Ryan Platelet mean volume (Bld) [Entitic vol] 8.3 fL Critically low 9.5-13.5 [facility] Comment on above: Performed By: #### A 1C #### [facility] [address] [address] [address] Rossana Ryan PLT 227 103/ul Normal 150-450 [facility] Comment on above: Performed By: #### A 1C #### [facility] [address] [address] [address] Rossana Ryan RBC 3.48 106/ul Critically low 4.20-5.40 [facility] Comment on above: Performed By: #### A 1C #### [facility] [address] [place] [address] Dr. Rossana Ryan WBC 6.9 103/ul Normal 4.0-11.0 [facility] Comment on above: Performed By: #### A 1C #### [facility] [address] [place] [address] Dr. Rossana Ryan CULTURE URINEon 11-15-2021 CULTURE URINE Culture Observations: MODERATE GROWTH OF MIXED GENITAL JAYME. NO POTENTIAL PATHOGENS SEEN. Normal [facility] Comment on above: Performed By: #### E RUR UMICRO #### [facility] [address] [place] [address] Dr. Rossana Ryan ER URINE PROFILEon Bilirubin Ql (U) Negative Normal NEGATIVE [facility] Comment on above: Performed By: #### U MICRO, ERUR #### [facility] [address] [place] [address] Dr. Rossana Ryan Clarity (U) CLEAR Normal CLEAR [facility] Comment on above: Performed By: #### U MICRO, ERUR #### [facility] [address] [place] [address] Dr. Rossana Ryan Color (U) YELLOW Normal YELLOW [facility] Comment on above: Performed By: #### U MICRO, ERUR #### [facility] [address] [place] [address] Dr. Rossana Ryan ERUAHD A micrscopic examination will be performed if indicated. Normal [facility] Comment on above: Performed By: #### U MICRO, ERUR #### [facility] [address] [place] [address] Dr. Rossana Ryan Glucose Ql (U) Negative Normal NEGATIVE [facility] Comment on above: Performed By: #### U MICRO, ERUR #### [facility] [address] [address] [address] Rossana Ryan Hemoglobin Ql (U) TRACE-LYSED Abnormal NEGATIVE [facility] Comment on above: Performed By: #### U MICRO, ERUR #### [facility] [address] [place] [address] Dr. Rossana Ryan Ketones Ql (U) TRACE Abnormal NEGATIVE [facility] Comment on above: Performed By: #### U MICRO, ERUR #### [facility] [address] [address] [address] Rossana Ryan LEUKOCYTES Negative Normal NEGATIVE [facility] Comment on above: Performed By: #### U MICRO, ERUR #### [facility] [address] [place] [address] Dr. Rossana Ryan Nitrite Ql (U) Negative Normal NEGATIVE [facility] Comment on above: Performed By: #### U MICRO, ERUR #### [facility] [address] [place] [address] Dr. Rossana Ryan pH (U) 6.0 [pH] Normal 5-9 [facility] Comment on above: Performed By: #### U MICRO, ERUR #### [facility] [address] [place] [address] Dr. Rossana Ryan SPEC GRAVITY 1.025 Normal 1.005-<=1.025 [facility] Comment on above: Performed By: #### U MICRO, ERUR #### [facility] [address] [place] [address] Dr. Rossana Ryan UA PROTEIN Negative Normal NEGATIVE/ TRACE [facility] Comment on above: Performed By: #### U MICRO, ERUR #### [facility] [address] [place] [address] Dr. Rossana Ryan UR MICRO IND INDICATED Normal [facility] Comment on above: Performed By: #### U MICRO, ERUR #### [facility] [address] [place] [address] Dr. Rossana Ryan Urobilinogen Qn (U) 8 {Hanh'U}/dL Abnormal 0.2 - 1.0 [facility] Comment on above: Performed By: #### U MICRO, ERUR #### [facility] [address] [address] [address] Rossana Ryan PROF CHEM 8 (BAS METB)on Anion gap [Moles/Vol] 10.1 mmol/L Normal [facility] Comment on above: Performed By: #### A 1C #### [facility] [address] [address] [address] Rossana Ryan Calcium [Mass/Vol] 8.4 mg/dL Critically low 8.5-10.1 [facility] Comment on above: Performed By: #### A 1C #### [facility] [address] [place] [address] Dr. Rossana Ryan Chloride [Moles/Vol] 104 mmol/L Normal 98-107 [facility] Comment on above: Performed By: #### A 1C #### [facility] [address] [place] [address] Dr. Rossana Ryan CO2 [Moles/Vol] 28.5 mmol/L Normal 21.0-32.0 [facility] Comment on above: Performed By: #### A 1C #### [facility] [address] [place] [address] Dr. Rossana Ryan Creatinine [Mass/Vol] 1.03 mg/dL Critically high 0.55-1.02 [facility] Comment on above: Performed By: #### A 1C #### [facility] [address] [place] [address] Dr. Rossana Ryan EGFR-AF LAO >60 Normal >=60 [facility] Comment on above: Performed By: #### A 1C #### [facility] [address] [place] [address] Dr. Rossana Ryan EGFR-NON AF LAO 52 mL/min/1.73m2 Critically low >=60 [facility] Comment on above: Performed By: #### A 1C #### [facility] [address] [place] [address] Dr. Rossana Ryan Glucose [Mass/Vol] 92 mg/dL Normal 74-106 [facility] Comment on above: Performed By: #### A 1C #### [facility] [address] [address] [address] Rossana Ryan Potassium [Moles/Vol] 3.6 mmol/L Normal 3.5-5.1 [facility] Comment on above: Performed By: #### A 1C #### [facility] [address] [address] [address] Rossana Ryan Sodium [Moles/Vol] 139 mmol/L Normal 136-145 [facility] Comment on above: Performed By: #### A 1C #### [facility] [address] [address] [address] Rossana Ryan Urea nitrogen [Mass/Vol] 19.0 mg/dL Critically high 7.0-18.0 [facility] Comment on above: Performed By: #### A 1C #### [facility] [address] [place] [address] Dr. Rossana Ryan Urea nitrogen/Creatinine [Mass ratio] 18.4 mg/mg Normal [facility] Comment on above: Performed By: #### A 1C #### [facility] [address] [place] [address] Dr. Rossana Ryan TSHon 11-15-2021 TSH 1.019 uIU/mL Normal 0.470-4.680 [facility] Comment on above: Performed By: #### A 1C #### [facility] [address] [place] [address] Dr. Rossana Ryan TSH RANGE SEE BELOW Normal [facility] Comment on above: Result Comment: <0.3 4 UIU/ml HYPERTHYROID 0.34-5.60 UIU/ml EUTHYROID >5.60 UIU/ml HYPOTHYROID Performed By: #### A 1C #### [facility] [address] [place] [address] Dr. Rossana Ryan URINE MICROSCOPIC ONLYon BACTERIA SMALL Abnormal NONE SEEN [facility] Comment on above: Performed By: #### U MICRO, ERUR #### [facility] [address] [address] [address] Rossana Ryan Bacteria identified Cx Nom (U) INDICATED Normal [facility] Comment on above: Performed By: #### U MICRO, ERUR #### [facility] [address] [place] [address] Dr. Rossana Ryan CAST NONE SEEN Normal NONE SEEN [facility] Comment on above: Performed By: #### U MICRO, ERUR #### [facility] [address] [place] [address] Dr. Rossana Ryan Crystals LM Nom (Urine sed) NONE SEEN Normal NONE SEEN [facility] Comment on above: Performed By: #### U MICRO, ERUR #### [facility] [address] [place] [address] Dr. Rossana Ryan Epithelial cells LM Ql (Urine sed) FEW Abnormal NONE SEEN /RARE [facility] Comment on above: Performed By: #### U MICRO, ERUR #### [facility] [address] [place] [address] Dr. Rossana Ryan MUCOUS NONE SEEN Normal NONE SEEN [facility] Comment on above: Performed By: #### U MICRO, ERUR #### [facility] [address] [place] [address] Dr. Rossana Ryan RBC 2-5 Abnormal 0-2 [facility] Comment on above: Performed By: #### U MICRO, ERUR #### [facility] [address] [place] [address] Dr. Rossana Ryan WBC 0-2 Abnormal NONE SEEN [facility] Comment on above: Performed By: #### U MICRO, ERUR #### [facility] [address] [place] [address] Dr. Rossana Ryan XR CHEST 2 Von 11-15-2021 XR CHEST 2 V EXAM: XR CHEST 2 V HISTORY: COUGH COMPARISON: Chest x-ray 10/28/2021 TECHNIQUE: PA and lateral chest FINDINGS: Chronic reticular changes with no acute consolidation or infiltrate. No pneumothorax or pleural effusion. The heart is not enlarged. No acute osseous abnormality. IMPRESSION: No acute abnormality Electronically authenticated by: PATRICIA VALADEZ Date: 2021-11-15 20:21 Normal [facility] XR KUB 1 VIEWon 11-15-2021 XR KUB 1 VIEW EXAM: XR KUB 1 VIEW HISTORY: Pain COMPARISON: Abdominal x-ray 10/28/2021 TECHNIQUE: Single view FINDINGS: Stool within the colon and rectum. The bowel gas pattern is nonobstructed. No visualized free intraperitoneal air, however, the hemidiaphragms are not visualized. Old left superior pubic rami/pubic symphysis. Status post lumbosacral fusion. No visualized internal hardware failure. Surgical clips within the pelvis and right upper quadrant IMPRESSION: Again demonstrated is stool within the colon and rectum. Electronically authenticated by: PATRICIA VALADEZ Date: 2021-11-15 20:04 Normal [facility] CT ABD/PELV W CONon 10-30-19 CT ABD/PELV W CON EXAMINATION: CT SCAN OF THE ABDOMEN AND PELVIS WITH INTRAVENOUS CONTRAST DATE OF EXAM: 10/28/2021 8:21 PM EDT HISTORY: 76-year-old female with 8 days of stool softeners and constipation. COMPARISON: None. TECHNIQUE: CT examination of the abdomen and pelvis was performed following the intravenous administration of IV contrast. CT dose lowering techniques were used, to include: automated exposure control, adjustment for patient size, and/or use of iterative reconstruction. Contrast: 100 mL Omnipaque 300 . 2 glasses of the oral Omnipaque with water FINDINGS: Lines and Tubes: None Lower Chest: Normal Free Air: None. Liver: Liver demonstrates intrahepatic biliary distention. Gallbladder: Removed Common Bile Duct: Normal Pancreas: Normal Spleen: Normal Adrenal Glands: Right: Normal Left: Normal Kidneys: Right Kidney: Normal. Right Ureter: Normal. Left Kidney: Normal. Left Ureter: Normal. GI Tract: Stomach: Normal Small Bowel: Normal Appendix: Not definitively visualized. No secondary signs for acute appendicitis. Large Bowel: There is impaction of stool in the sigmoid colon with postoperative suture material causing prominence of the bowel in the area of anastomosis. Mesentery/Peritoneum : Normal Vasculature: Aorta: There are multiple varices seen anterior to the left side of the aorta and the bifurcation. IVC: Normal. Jasper Vein: Normal. Retroperitoneum: Normal Abdominal/Pelvic Wall: Normal Bladder: Normal Reproductive: Hysterectomy. Musculoskeletal: Postoperative changes of the lumbar spine at L4-L5 demonstrated with decreased bone mineralization disc spacer. Free Fluid: None. IMPRESSION: 1. Significant retention of stool in the area of anastomosis within the rectosigmoid colon. 2. Hysterectomy. 3. 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 Status post cholecystectomy. 5. Hepatic steatosis with intrahepatic and extrahepatic biliary distention within expected limits of normal given the patient is status post cholecystectomy.. Electronically authenticated by: LAURA LE Date: 2021-10-28 23:30 Normal [facility] CBC AUTO DIFFon 10-28-2021 BASO # 0.0 103/ul Normal 0.0-0.1 [facility] Comment on above: Performed By: #### A 1C #### [facility] [address] [address] [address] Rossana Ryan Basophils/100 WBC (Bld) 0.6 % Normal 0.2-2.0 [facility] Comment on above: Performed By: #### A 1C #### [facility] [address] [address] [address] Rossana Ryan EO # 0.1 103/ul Normal 0.0-0.7 [facility] Comment on above: Performed By: #### A 1C #### [facility] [address] [address] [address] Rossana Ryan Eosinophils/100 WBC (Bld) 1.6 % Normal 0.9-7.0 [facility] Comment on above: Performed By: #### A 1C #### [facility] [address] [address] [address] Rossana Ryan Erythrocyte distribution width (RBC) [Ratio] 13.1 % Normal 11.0-15.0 [facility] Comment on above: Performed By: #### A 1C #### [facility] [address] [address] [address] Rossana Ryan Hematocrit (Bld) [Volume fraction] 35.0 % Critically low 36.0-48.0 [facility] Comment on above: Performed By: #### A 1C #### [facility] [address] [address] [address] Rossana Ryan Hemoglobin (Bld) [Mass/Vol] 11.9 g/dL Critically low 12.0-16.0 [facility] Comment on above: Performed By: #### A 1C #### [facility] [address] [place] [address] Dr. Rossana Ryan IG # 0.02 10e3/ul Normal 0.00-0.03 [facility] Comment on above: Performed By: #### A 1C #### [facility] [address] [place] [address] Dr. Rossana Ryan IG % 0.4 % Normal 0.0-0.5 [facility] Comment on above: Performed By: #### A 1C #### [facility] [address] [place] [address] Dr. Rossana Ryan LYMPH # 1.3 103/ul Normal 1.2-3.8 [facility] Comment on above: Performed By: #### A 1C #### [facility] [address] [place] [address] Dr. Rossana Ryan Lymphocytes/100 WBC (Bld) 26.9 % Normal 20.5-60.0 [facility] Comment on above: Performed By: #### A 1C #### [facility] [address] [place] [address] Dr. Rossana Ryan MANUAL DIFF REQ NO Normal [facility] Comment on above: Performed By: #### A 1C #### [facility] [address] [place] [address] Dr. Rossana Ryan MCH (RBC) [Entitic mass] 32.2 pg Normal 26.7-34.0 [facility] Comment on above: Performed By: #### A 1C #### [facility] [address] [place] [address] Dr. Rossana Ryan MCHC (RBC) [Mass/Vol] 34.0 g/dL Normal 29.9-35.2 [facility] Comment on above: Performed By: #### A 1C #### [facility] [address] [place] [address] Dr. Rossana Ryan MCV (RBC) [Entitic vol] 94.9 fL Normal 81.0-99.0 [facility] Comment on above: Performed By: #### A 1C #### [facility] [address] [place] [address] Dr. Rossana Ryan MONO # 0.4 103/ul Normal 0.3-0.8 [facility] Comment on above: Performed By: #### A 1C #### [facility] [address] [place] [address] Dr. Rossana Ryan Monocytes/100 WBC (Bld) 7.0 % Normal 1.7-12.0 [facility] Comment on above: Performed By: #### A 1C #### [facility] [address] [place] [address] Dr. Rossana Ryan NEUT # 3.2 103/ul Normal 1.4-6.5 [facility] Comment on above: Performed By: #### A 1C #### [facility] [address] [place] [address] Dr. Rossana Ryan Neutrophils/100 WBC (Bld) 63.5 % Normal 43.0-75.0 [facility] Comment on above: Performed By: #### A 1C #### [facility] [address] [place] [address] Dr. Rossana Ryan Platelet mean volume (Bld) [Entitic vol] 8.7 fL Critically low 9.5-13.5 [facility] Comment on above: Performed By: #### A 1C #### [facility] [address] [place] [address] Dr. Rossana Ryan PLT 209 103/ul Normal 150-450 [facility] Comment on above: Performed By: #### A 1C #### [facility] [address] [place] [address] Dr. Rossana Ryan RBC 3.69 106/ul Critically low 4.20-5.40 [facility] Comment on above: Performed By: #### A 1C #### [facility] [address] [place] [address] Dr. Rossana Ryan WBC 5.0 103/ul Normal 4.0-11.0 [facility] Comment on above: Performed By: #### A 1C #### [facility] [address] [place] [address] Dr. Rossana Ryan ER URINE PROFILEon 2 Bilirubin Ql (U) Negative Normal NEGATIVE [facility] Comment on above: Performed By: #### A 1C #### [facility] [address] [place] [address] Dr. Rossana Ryan Clarity (U) CLEAR Normal CLEAR [facility] Comment on above: Performed By: #### A 1C #### [facility] [address] [place] [address] Dr. Rossana Ryan Color (U) LT. YELLOW Normal YELLOW [facility] Comment on above: Performed By: #### A 1C #### [facility] [address] [place] [address] Dr. Rossana ASENCIO A micrscopic examination will be performed if indicated. Normal [facility] Comment on above: Performed By: #### A 1C #### [facility] [address] [place] [address] Dr. Rossana Ryan Glucose Ql (U) Negative Normal NEGATIVE [facility] Comment on above: Performed By: #### A 1C #### [facility] [address] [place] [address] Dr. Rossana Ryan Hemoglobin Ql (U) TRACE-INTACT Abnormal NEGATIVE [facility] Comment on above: Performed By: #### A 1C #### [facility] [address] [place] [address] Dr. Rossana Ryan Ketones Ql (U) Negative Normal NEGATIVE [facility] Comment on above: Performed By: #### A 1C #### [facility] [address] [place] [address] Dr. Rossana Ryan LEUKOCYTES Negative Normal NEGATIVE [facility] Comment on above: Performed By: #### A 1C #### [facility] [address] [place] [address] Dr. Rossana Ryan Nitrite Ql (U) Negative Normal NEGATIVE [facility] Comment on above: Performed By: #### A 1C #### [facility] [address] [place] [address] Dr. Rossana Ryan pH (U) 7.0 [pH] Normal 5-9 [facility] Comment on above: Performed By: #### A 1C #### [facility] [address] [place] [address] Dr. Rossana Ryan SPEC GRAVITY 1.010 Normal 1.005-<=1.025 [facility] Comment on above: Performed By: #### A 1C #### [facility] [address] [place] [address] Dr. Rossana Ryan UA PROTEIN Negative Normal NEGATIVE/ TRACE [facility] Comment on above: Performed By: #### A 1C #### [facility] [address] [place] [address] Dr. Rossana Ryan UR MICRO IND INDICATED Normal [facility] Comment on above: Performed By: #### A 1C #### [facility] [address] [place] [address] Dr. Rossana Ryan Urobilinogen Qn (U) 1.0 {Hanh'U}/dL Normal 0.2 - 1. 0 [facility] Comment on above: Performed By: #### A 1C #### [facility] [address] [place] [address] Dr. Rossana Ryan PROF 14(COMP METB)on 022 Albumin [Mass/Vol] 3.5 g/dL Normal 3.4-5.0 [facility] Comment on above: Performed By: #### ROD ALMANZAR #### [facility] [address] [place] [address] Dr. Rossana Ryan Albumin/Globulin [Mass ratio] 1.0 {ratio} Normal [facility] Comment on above: Performed By: #### ROD ALMANZAR #### [facility] [address] [place] [address] Dr. Rossana Ryan ALP [Catalytic activity/Vol] 79 U/L Normal 46-116 [facility] Comment on above: Performed By: #### ROD ALMANZAR #### [facility] [address] [place] [address] Dr. Rossana Ryan ALT [Catalytic activity/Vol] 19 U/L Normal 14-59 [facility] Comment on above: Performed By: #### ROD ALMANZAR #### [facility] [address] [address] [address] Rossana Ryan Anion gap [Moles/Vol] 13.2 mmol/L Normal [facility] Comment on above: Performed By: #### E UDAYR, UMICRO #### [facility] [address] [address] [address] Rossana Ryan AST [Catalytic activity/Vol] 18 U/L Normal 15-37 [facility] Comment on above: Performed By: #### E UDAYR, UMICRO #### [facility] [address] [address] [address] Rossana Ryan Bilirubin [Mass/Vol] 0.6 mg/dL Normal 0.2-1.3 [facility] Comment on above: Performed By: #### E UDAYR, UMICRO #### [facility] [address] [place] [address] Dr. Rossana Ryan Calcium [Mass/Vol] 9.0 mg/dL Normal 8.5-10.1 [facility] Comment on above: Performed By: #### E UDAYR, UMICRO #### [facility] [address] [address] [address] Rossana Ryan Chloride [Moles/Vol] 103 mmol/L Normal 98-107 [facility] Comment on above: Performed By: #### Archie FRYER, UMICRO #### [facility] [address] [address] [address] Rossana Ryan CO2 [Moles/Vol] 25.7 mmol/L Normal 22.0-30.0 [facility] Comment on above: Performed By: #### E RUR, UMICRO #### [facility] [address] [address] [address] Rossana Ryan Creatinine [Mass/Vol] 1.17 mg/dL Critically high 0.52-1.04 [facility] Comment on above: Performed By: #### E RUR, UMICRO #### [facility] [address] [address] [address] Rossana Ryan EGFR-AF LAO 54 mL/min/1.73m2 Critically low >=60 [facility] Comment on above: Performed By: #### GUILLE ALMANZARRO #### [facility] [address] [place] [address] Dr. Rossana Ryan EGFR-NON AF LAO 45 mL/min/1.73m2 Critically low >=60 [facility] Comment on above: Performed By: #### GUILLE ALMANZARRO #### [facility] [address] [place] [address] Dr. Rossana Ryan Globulin (S) [Mass/Vol] 3.6 g/dL Normal [facility] Comment on above: Performed By: #### GUILLE ALMANZARRO #### [facility] [address] [place] [address] Dr. Rossana Ryan Glucose [Mass/Vol] 114 mg/dL Critically high 74-106 [facility] Comment on above: Performed By: #### GUILLE ALMANZARRO #### [facility] [address] [place] [address] Dr. Rossana Ryan Potassium [Moles/Vol] 3.9 mmol/L Normal 3.4-5.0 [facility] Comment on above: Performed By: #### GUILLE ALMANZARRO #### [facility] [address] [place] [address] Dr. Rossana Ryan Protein [Mass/Vol] 7.1 g/dL Normal 6.1-8.2 [facility] Comment on above: Performed By: #### GUILLE ALMANZARRO #### [facility] [address] [place] [address] Dr. Rossana Ryan Sodium [Moles/Vol] 138 mmol/L Normal 137-145 [facility] Comment on above: Performed By: #### GUILLE ALMANZARRO #### [facility] [address] [place] [address] Dr. Rossana Ryan Urea nitrogen [Mass/Vol] 17.0 mg/dL Normal 7.0-18.0 [facility] Comment on above: Performed By: #### GUILLE ALMANZARRO #### [facility] [address] [place] [address] Dr. Rossana Ryan Urea nitrogen/Creatinine [Mass ratio] 14.5 mg/mg Normal [facility] Comment on above: Performed By: #### E ROD HENDERSON #### [facility] [address] [place] [address] Dr. Rossana Ryan URINE MICROSCOPIC ONLYon BACTERIA NONE SEEN Normal NONE SEEN [facility] Comment on above: Performed By: #### A 1C #### [facility] [address] [place] [address] Dr. Rossana Ryan Bacteria identified Cx Nom (U) NOT INDICATED Normal [facility] Comment on above: Performed By: #### A 1C #### [facility] [address] [place] [address] Dr. Rossana Ryan CAST NONE SEEN Normal NONE SEEN [facility] Comment on above: Performed By: #### A 1C #### [facility] [address] [place] [address] Dr. Rossana Ryan Crystals LM Nom (Urine sed) NONE SEEN Normal NONE SEEN [facility] Comment on above: Performed By: #### A 1C #### [facility] [address] [place] [address] Dr. Rossana Ryan Epithelial cells LM Ql (Urine sed) FEW Abnormal NONE SEEN /RARE [facility] Comment on above: Performed By: #### A 1C #### [facility] [address] [place] [address] Dr. Rossana Ryan MUCOUS NONE SEEN Normal NONE SEEN [facility] Comment on above: Performed By: #### A 1C #### [facility] [address] [place] [address] Dr. Rossana Ryan RBC 0-2 Normal 0-2 [facility] Comment on above: Performed By: #### A 1C #### [facility] [address] [place] [address] Dr. Rossana Ryan WBC NONE SEEN Normal NONE SEEN [facility] Comment on above: Performed By: #### A 1C #### [facility] [address] [place] [address] Dr. Rossana Ryan XR ABD FLAT UP_PA Nicholas 10-28 XR ABD FLAT UP_PA CH EXAM: XR ABD FLAT UP_PA CH HISTORY: CONSTIPATION, UNSPECIFIED COMPARISON: None. TECHNIQUE: 3 views FINDINGS: Diffuse chronic reticular changes throughout the lung parenchyma. No focal consolidation or infiltrate. No pneumothorax or pleural effusion. The heart is not enlarged. Stool throughout the colon and within the rectum. No bowel obstruction or visualized free intraperitoneal air. The osseous structures exhibit no gross acute abnormalities. Postoperative changes of the lumbosacral junction. Surgical clips within the deep pelvis. Old left pubic symphysis fracture IMPRESSION: No visualized acute abnormality Electronically authenticated by: PATRICIA VALADEZ Date: 2021-10-28 20:23 Normal [facility] CBC AUTO DIFFon 10-08-2021 BASO # 0.0 103/ul Normal 0.0-0.1 [facility] Comment on above: Performed By: #### C BC #### [facility] [address] [address] [address] Rossana Ryan Basophils/100 WBC (Bld) 0.5 % Normal 0.2-2.0 [facility] Comment on above: Performed By: #### C BC #### [facility] [address] [address] [address] Rossana Ryan EO # 0.1 103/ul Normal 0.0-0.7 [facility] Comment on above: Performed By: #### C BC #### [facility] [address] [address] [address] Rossana Ryan Eosinophils/100 WBC (Bld) 2.4 % Normal 0.9-7.0 [facility] Comment on above: Performed By: #### C BC #### [facility] [address] [address] [address] Rossana Ryan Erythrocyte distribution width (RBC) [Ratio] 13.3 % Normal 11.0-15.0 [facility] Comment on above: Performed By: #### C BC #### [facility] [address] [address] [address] Rossana Ryan Hematocrit (Bld) [Volume fraction] 34.7 % Critically low 36.0-48.0 [facility] Comment on above: Performed By: #### C BC #### [facility] [address] [address] [address] Rossana Ryan Hemoglobin (Bld) [Mass/Vol] 11.6 g/dL Critically low 12.0-16.0 [facility] Comment on above: Performed By: #### C BC #### [facility] [address] [address] [address] Rossana Ryan IG # 0.01 10e3/ul Normal 0.00-0.03 [facility] Comment on above: Performed By: #### C BC #### [facility] [address] [place] [address] Dr. Rossana Ryan IG % 0.2 % Normal 0.0-0.5 [facility] Comment on above: Performed By: #### C BC #### [facility] [address] [place] [address] Dr. Rossana Ryan LYMPH # 1.0 103/ul Critically low 1.2-3.8 [facility] Comment on above: Performed By: #### C BC #### [facility] [address] [place] [address] Dr. Rossana Ryan Lymphocytes/100 WBC (Bld) 24.3 % Normal 20.5-60.0 [facility] Comment on above: Performed By: #### C BC #### [facility] [address] [place] [address] Dr. Rossana Ryan MANUAL DIFF REQ NO Normal [facility] Comment on above: Performed By: #### C BC #### [facility] [address] [place] [address] Dr. Rossana Ryan MCH (RBC) [Entitic mass] 32.4 pg Normal 26.7-34.0 [facility] Comment on above: Performed By: #### C BC #### [facility] [address] [place] [address] Dr. Rossana Ryan MCHC (RBC) [Mass/Vol] 33.4 g/dL Normal 29.9-35.2 [facility] Comment on above: Performed By: #### C BC #### [facility] [address] [address] [address] Rossana Ryan MCV (RBC) [Entitic vol] 96.9 fL Normal 81.0-99.0 [facility] Comment on above: Performed By: #### C BC #### [facility] [address] [address] [address] Rossana Ryan MONO # 0.3 103/ul Normal 0.3-0.8 [facility] Comment on above: Performed By: #### C BC #### [facility] [address] [address] [address] Rossana Ryan Monocytes/100 WBC (Bld) 6.6 % Normal 1.7-12.0 [facility] Comment on above: Performed By: #### C BC #### [facility] [address] [place] [address] Dr. Rossana Ryan NEUT # 2.8 103/ul Normal 1.4-6.5 [facility] Comment on above: Performed By: #### C BC #### [facility] [address] [place] [address] Dr. Rossana Ryan Neutrophils/100 WBC (Bld) 66.0 % Normal 43.0-75.0 [facility] Comment on above: Performed By: #### C BC #### [facility] [address] [place] [address] Dr. Rossana Ryan Platelet mean volume (Bld) [Entitic vol] 9.4 fL Critically low 9.5-13.5 [facility] Comment on above: Performed By: #### C BC #### [facility] [address] [place] [address] Dr. Rossana Ryan PLT 172 103/ul Normal 150-450 [facility] Comment on above: Performed By: #### C BC #### [facility] [address] [address] [address] Rossana Ryan RBC 3.58 106/ul Critically low 4.20-5.40 [facility] Comment on above: Performed By: #### C BC #### [facility] [address] [address] [address] Rossana Ryan WBC 4.2 103/ul Normal 4.0-11.0 [facility] Comment on above: Performed By: #### C BC #### [facility] [address] [address] [address] Rossana Ryan GLYCOHEMOGLOBIN A1Con 2021 ADA RECOMMENDATION ADA THERAPEUTIC TARGET 6.0 - 7.0 ACTION SUGGESTED > 7.0 Normal [facility] Comment on above: Performed By: #### A 1C #### [facility] [address] [place] [address] Dr. Rossana Ryan Glucose [Mass/Vol] 100 mg/dL Normal [facility] Comment on above: Performed By: #### A 1C #### [facility] [address] [place] [address] Dr. Rossana Ryan HbA1c (Bld) [Mass fraction] 5.1 % Normal <=6.0 [facility] Comment on above: Performed By: #### A 1C #### [facility] [address] [place] [address] Dr. Rossana Ryan PROF CHEM 8 (BAS METB)on Anion gap [Moles/Vol] 10.9 mmol/L Normal [facility] Comment on above: Performed By: #### B MP #### [facility] [address] [place] [address] Dr. Rossana Ryan Calcium [Mass/Vol] 8.6 mg/dL Normal 8.4-10.2 [facility] Comment on above: Performed By: #### B MP #### [facility] [address] [place] [address] Dr. Rossana Ryan Chloride [Moles/Vol] 105 mmol/L Normal 98-107 [facility] Comment on above: Performed By: #### B MP #### [facility] [address] [place] [address] Dr. Rossana Ryan CO2 [Moles/Vol] 27.9 mmol/L Normal 22.0-30.0 [facility] Comment on above: Performed By: #### B MP #### [facility] [address] [address] [address] Rossana Ryan Creatinine [Mass/Vol] 1.01 mg/dL Normal 0.52-1.04 [facility] Comment on above: Performed By: #### B MP #### [facility] [address] [address] [address] Rossana Ryan EGFR-AF LAO >60 Normal >=60 [facility] Comment on above: Performed By: #### B MP #### [facility] [address] [address] [address] Rossana Ryan EGFR-NON AF LAO 53 mL/min/1.73m2 Critically low >=60 [facility] Comment on above: Performed By: #### B MP #### [facility] [address] [address] [address] Rossana Ryan Glucose [Mass/Vol] 130 mg/dL Critically high 74-106 [facility] Comment on above: Performed By: #### B MP #### [facility] [address] [address] [address] Rossana Ryan Potassium [Moles/Vol] 3.8 mmol/L Normal 3.4-5.0 [facility] Comment on above: Performed By: #### B MP #### [facility] [address] [address] [address] Rossana Ryan Sodium [Moles/Vol] 140 mmol/L Normal 137-145 [facility] Comment on above: Performed By: #### B MP #### [facility] [address] [address] [address] Rossana Ryan Urea nitrogen [Mass/Vol] 21.0 mg/dL Critically high 7.0-17.0 [facility] Comment on above: Performed By: #### B MP #### [facility] [address] [address] [address] Rossana Ryan Urea nitrogen/Creatinine [Mass ratio] 20.8 mg/mg Normal [facility] Comment on above: Performed By: #### B MP #### [facility] [address] [place] [address] Dr. Rossana Ryan SGOTon 10-08-2021 AST [Catalytic activity/Vol] 19 U/L Normal 14-36 [facility] Comment on above: Performed By: #### B MP #### [facility] [address] [place] [address] Dr. Rossana Ryan SGPTon 10-08-2021 ALT [Catalytic activity/Vol] 16 U/L Normal 9-52 [facility] Comment on above: Performed By: #### B MP #### [facility] [address] [place] [address] Dr. Rossana Ryan VITAMIN D 25 OHon 10-08-2021 VIT D 25-OH 78.9 ng/mL Normal [facility] Comment on above: Performed By: #### ROD ALMANZAR #### [facility] [address] [place] [address] Dr. Rossana Ryan VIT D RANGES SEE BELOW Normal [facility] Comment on above: Result Comment: <20 ng/mL Vit D deficient 20 - <30 ng/mL Vit D insufficient 30 - 100 ng/mL Vit D sufficient >100 ng/mL Potential Toxicity Performed By: #### ROD ALMANZAR #### [facility] [address] [place] [address] Dr. Rossana Ryan BNPon 08-10-2021 Natriuretic peptide B (Bld) [Mass/Vol] 260.0 pg/mL Normal <=1,800.0 [facility] Comment on above: Performed By: #### ROD ALMANZAR #### [facility] [address] [place] [address] Dr. Rossana Ryan CBC AUTO DIFFon 08-10-2021 BASO # 0.0 103/ul Normal 0.0-0.1 [facility] Comment on above: Performed By: #### C BC #### [facility] [address] [place] [address] Dr. Rossana Ryan Basophils/100 WBC (Bld) 0.6 % Normal 0.2-2.0 [facility] Comment on above: Performed By: #### C BC #### [facility] [address] [address] [address] Rossana Ryan EO # 0.1 103/ul Normal 0.0-0.7 [facility] Comment on above: Performed By: #### C BC #### [facility] [address] [place] [address] Dr. Rossana Ryan Eosinophils/100 WBC (Bld) 1.7 % Normal 0.9-7.0 [facility] Comment on above: Performed By: #### C BC #### [facility] [address] [place] [address] Dr. Rossana Ryan Erythrocyte distribution width (RBC) [Ratio] 13.4 % Normal 11.0-15.0 [facility] Comment on above: Performed By: #### C BC #### [facility] [address] [place] [address] Dr. Rossana Ryan Hematocrit (Bld) [Volume fraction] 33.2 % Critically low 36.0-48.0 [facility] Comment on above: Performed By: #### C BC #### [facility] [address] [place] [address] Dr. Rossana Ryan Hemoglobin (Bld) [Mass/Vol] 11.0 g/dL Critically low 12.0-16.0 [facility] Comment on above: Performed By: #### C BC #### [facility] [address] [place] [address] Dr. Rossana Ryan IG # 0.05 10e3/ul Critically high 0.00-0.03 [facility] Comment on above: Performed By: #### C BC #### [facility] [address] [place] [address] Dr. Rossana Ryan IG % 1.0 % Critically high 0.0-0.5 [facility] Comment on above: Performed By: #### C BC #### [facility] [address] [place] [address] Dr. Rossana Ryan LYMPH # 1.1 103/ul Critically low 1.2-3.8 [facility] Comment on above: Performed By: #### C BC #### [facility] [address] [place] [address] Dr. Rossana Ryan Lymphocytes/100 WBC (Bld) 22.8 % Normal 20.5-60.0 [facility] Comment on above: Performed By: #### C BC #### [facility] [address] [place] [address] Dr. Rossana Ryan MANUAL DIFF REQ NO Normal [facility] Comment on above: Performed By: #### C BC #### [facility] [address] [place] [address] Dr. Rossana Ryan MCH (RBC) [Entitic mass] 31.5 pg Normal 26.7-34.0 [facility] Comment on above: Performed By: #### C BC #### [facility] [address] [place] [address] Dr. Rossana Ryan MCHC (RBC) [Mass/Vol] 33.1 g/dL Normal 29.9-35.2 [facility] Comment on above: Performed By: #### C BC #### [facility] [address] [place] [address] Dr. Rossana Ryan MCV (RBC) [Entitic vol] 95.1 fL Normal 81.0-99.0 [facility] Comment on above: Performed By: #### C BC #### [facility] [address] [place] [address] Dr. Rossana Ryan MONO # 0.3 103/ul Normal 0.3-0.8 [facility] Comment on above: Performed By: #### C BC #### [facility] [address] [place] [address] Dr. Rossana Ryan Monocytes/100 WBC (Bld) 6.5 % Normal 1.7-12.0 [facility] Comment on above: Performed By: #### C BC #### [facility] [address] [place] [address] Dr. Rossana Ryan NEUT # 3.2 103/ul Normal 1.4-6.5 [facility] Comment on above: Performed By: #### C BC #### [facility] [address] [address] [address] Rossana Ryan Neutrophils/100 WBC (Bld) 67.4 % Normal 43.0-75.0 [facility] Comment on above: Performed By: #### C BC #### [facility] [address] [place] [address] Dr. Rossana Ryan Platelet mean volume (Bld) [Entitic vol] 8.4 fL Critically low 9.5-13.5 [facility] Comment on above: Performed By: #### C BC #### [facility] [address] [address] [address] Rossana Ryan PLT 143 103/ul Critically low 150-450 [facility] Comment on above: Performed By: #### C BC #### [facility] [address] [place] [address] Dr. Rossana Ryan RBC 3.49 106/ul Critically low 4.20-5.40 [facility] Comment on above: Performed By: #### C BC #### [facility] [address] [place] [address] Dr. Rossana Ryan WBC 4.8 103/ul Normal 4.0-11.0 [facility] Comment on above: Performed By: #### C BC #### [facility] [address] [place] [address] Dr. Rossana Ryan Covid-19 PCR (CVDTB)on 07-27 SARS-CoV-2 (COVID-19) RNA SHANNON+probe Ql (Unsp spec) Not detected Normal NOT DETECTED [facility] Comment on above: Result Comment: When diagnostic testing is negative, the possibility of a false negative should be considered in the context of a patient's recent exposures and the presence of clinical signs and symptoms consistent with SARS-CoV-2. This test is not yet approved or cleared by the [place] FDA. When there are no FDA-approved or cleared tests available, and other criteria are met, FDA can make tests available under an emergency access mechanism called an Emergency Use Authorization (EUA). The EUA for this test is supported by the Advertising Editor of Health and Human Service's declaration that circumstances exist to justify the emergency use of in vitro diagnostics for the detection and/or diagnosis of the virus that causes COVID-19. This EUA will remain in effect for the duration of the COVID-19 declaration justifying emergency of IVDs, unless it is terminated or revoked by the FDA (after which the test may no longer be used). Performed By: #### Archie HENDERSON UMICRO #### [facility] [address] [place] [address] Dr. Rossana Ryan ER URINE PROFILEon 2 Bilirubin Ql (U) Negative Normal NEGATIVE [facility] Comment on above: Performed By: #### E BEATRIZ UMICRO #### [facility] [address] [place] [address] Dr. Rossana Ryan Clarity (U) SL CLOUDY Abnormal CLEAR [facility] Comment on above: Performed By: #### Archie HENDERSON UMICRO #### [facility] [address] [place] [address] Dr. Rossana Ryan Color (U) LT. YELLOW Normal YELLOW [facility] Comment on above: Performed By: #### Archie HENDERSON UMICRO #### [facility] [address] [place] [address] Dr. Rossana Ryan ERUPaulino A micrscopic examination will be performed if indicated. Normal [facility] Comment on above: Performed By: #### Archie HENDERSON UMICRO #### [facility] [address] [place] [address] Dr. Rossana Ryan Glucose Ql (U) Negative Normal NEGATIVE [facility] Comment on above: Performed By: #### Archie HENDERSON UMICRO #### [facility] [address] [place] [address] Dr. Rossana Ryan Hemoglobin Ql (U) SMALL Abnormal NEGATIVE [facility] Comment on above: Performed By: #### Archie HENDERSON UMICRO #### [facility] [address] [place] [address] Dr. Rossana Ryan Ketones Ql (U) Negative Normal NEGATIVE [facility] Comment on above: Performed By: #### Archie HENDERSON UMICRO #### [facility] [address] [place] [address] Dr. Rossana Ryan LEUKOCYTES Negative Normal NEGATIVE [facility] Comment on above: Performed By: #### ROD ALMANZAR #### [facility] [address] [place] [address] Dr. Rossana Ryan Nitrite Ql (U) Negative Normal NEGATIVE [facility] Comment on above: Performed By: #### GUILLE ALMANZARRO #### [facility] [address] [place] [address] Dr. Rossana Ryan pH (U) 6.5 [pH] Normal 5-9 [facility] Comment on above: Performed By: #### ROD ALMANZAR #### [facility] [address] [place] [address] Dr. Rossana Ryan SPEC GRAVITY 1.020 Normal 1.005-<=1.025 [facility] Comment on above: Performed By: #### GUILLE ALMANZARRO #### [facility] [address] [place] [address] Dr. Rossana Ryan UA PROTEIN Negative Normal NEGATIVE/ TRACE [facility] Comment on above: Performed By: #### ROD ALMANZAR #### [facility] [address] [place] [address] Dr. Rossana Ryan UR MICRO IND INDICATED Normal [facility] Comment on above: Performed By: #### GUILLE ALMANZARRO #### [facility] [address] [place] [address] Dr. Rossana Ryan Urobilinogen Qn (U) 1.0 {Hanh'U}/dL Normal 0.2 - 1. 0 [facility] Comment on above: Performed By: #### GUILLE ALMANZARRO #### [facility] [address] [place] [address] Dr. Rossana Ryan PROF CHEM 8 (BAS METB)on Anion gap [Moles/Vol] 11.4 mmol/L Normal [facility] Comment on above: Performed By: #### GUILLE ALMANZARRO #### [facility] [address] [place] [address] Dr. Rossana Ryan Calcium [Mass/Vol] 8.1 mg/dL Critically low 8.4-10.2 [facility] Comment on above: Performed By: #### ANNIE ALMANZARICRO #### [facility] [address] [place] [address] Dr. Rossana Ryan Chloride [Moles/Vol] 104 mmol/L Normal 98-107 [facility] Comment on above: Performed By: #### Archie HENDERSON, UMICRO #### [facility] [address] [place] [address] Dr. Rossana Ryan CO2 [Moles/Vol] 25.7 mmol/L Normal 22.0-30.0 [facility] Comment on above: Performed By: #### Archie HENDERSON UMICRO #### [facility] [address] [place] [address] Dr. Rossana Ryan Creatinine [Mass/Vol] 1.02 mg/dL Normal 0.52-1.04 [facility] Comment on above: Performed By: #### Archie HENDERSON UMICRO #### [facility] [address] [place] [address] Dr. Rossana Ryan EGFR-AF LAO >60 Normal >=60 [facility] Comment on above: Performed By: #### Archie HENDERSON, UMICRO #### [facility] [address] [place] [address] Dr. Rossana Ryan EGFR-NON AF LAO 53 mL/min/1.73m2 Critically low >=60 [facility] Comment on above: Performed By: #### Archie HENDERSON, UMICRO #### [facility] [address] [place] [address] Dr. Rossana Ryan Glucose [Mass/Vol] 131 mg/dL Critically high 74-106 [facility] Comment on above: Performed By: #### Archie HENDERSON, UMICRO #### [facility] [address] [place] [address] Dr. Rossana Ryan Potassium [Moles/Vol] 3.1 mmol/L Critically low 3.4-5.0 [facility] Comment on above: Performed By: #### E UDAYR, UMICRO #### [facility] [address] [address] [address] Rossana Ryan Sodium [Moles/Vol] 138 mmol/L Normal 137-145 [facility] Comment on above: Performed By: #### E UDAYR, UMICRO #### [facility] [address] [place] [address] Dr. Rossana Ryan Urea nitrogen [Mass/Vol] 14.0 mg/dL Normal 7.0-17.0 [facility] Comment on above: Performed By: #### E UDAYR, UMICRO #### [facility] [address] [place] [address] Dr. Rossana Ryan Urea nitrogen/Creatinine [Mass ratio] 13.7 mg/mg Normal [facility] Comment on above: Performed By: #### E UDAYR, UMICRO #### [facility] [address] [place] [address] Dr. Rossana Ryan TROPONIN, HIGH SENSITIVITYon 08-10-2021 HSTROP 5.4 pg/mL Normal 4.0-35.5 [facility] Comment on above: Result Comment: CUT- OFF POINTS HAVE BEEN ESTABLISHED BASED ON THE FOURTH UNIVERSAL DEFINITIONS OF MYOCARDIAL INFARCTION. THE UPPER REFERENCE LIMIT (URL) OF TROPONIN, DEFINED THE 99TH PERCENTILE OF cTnI DISTRIBUTION IN A REFERENCE POPULATION, HAS BEEN CONFIRMED THE DECISION THRESHOLD FOR VA DIAGNOSIS. Performed By: #### Archie HENDERSON, UMICRO #### [facility] [address] [place] [address] Dr. Rossana Ryan URINE MICROSCOPIC ONLYon BACTERIA TRACE Abnormal NONE SEEN [facility] Comment on above: Performed By: #### E BEATRIZ, UMICRO #### [facility] [address] [place] [address] Dr. Rossana Ryan Bacteria identified Cx Nom (U) NOT INDICATED Normal [facility] Comment on above: Performed By: #### E UDAYR, UMICRO #### [facility] [address] [place] [address] Dr. Rossana Ryan CAST NONE SEEN Normal NONE SEEN [facility] Comment on above: Performed By: #### E RUR, UMICRO #### [facility] [address] [address] [address] Rossana Ryan Crystals LM Nom (Urine sed) NONE SEEN Normal NONE SEEN [facility] Comment on above: Performed By: #### E RUR, UMICRO #### [facility] [address] [address] [address] Rossana Ryan Epithelial cells LM Ql (Urine sed) MANY Abnormal NONE SEEN /RARE [facility] Comment on above: Performed By: #### E RUR, UMICRO #### [facility] [address] [place] [address] Dr. Rossana Ryan MUCOUS NONE SEEN Normal NONE SEEN [facility] Comment on above: Performed By: #### E RUR, UMICRO #### [facility] [address] [place] [address] Dr. Rossana Ryan RBC 0-2 Normal 0-2 [facility] Comment on above: Performed By: #### E RUR, UMICRO #### [facility] [address] [place] [address] Dr. Rossana Ryan WBC 0-2 Abnormal NONE SEEN [facility] Comment on above: Performed By: #### E RUR, UMICRO #### [facility] [address] [place] [address] Dr. Rossana Ryan XR CHEST 1 Von 08-10-2021 XR CHEST 1 V EXAMINATION: XR CHEST 1 V HISTORY: Shortness of breath COMPARISON: Chest x-ray 06/12/2021 TECHNIQUE: Portable chest FINDINGS: The lung parenchyma is free of acute consolidation or infiltrate. Stable chronic changes. No pneumothorax or pleural effusion. The cardiac, mediastinal and hilar contours are normal. The visualized osseous structures exhibit no gross abnormality. IMPRESSION: No acute cardiopulmonary abnormality. Electronically authenticated by: PATRICIA VALADEZ Date: 2021-08-10 16:28 Normal [facility] Vital Signs Date Time Vital Sign Value Performing Clinician [place] [facility] 12-26-2024 14:14-0400 Body height 165.1 cm Joaquín Brock MD Work Phone: [facility] 12-26-2024 14:14-0400 Body mass index (BMI) [Ratio] 22.63 kg/m2 Joaquín Brock MD Work Phone: [facility] 12-26-2024 14:14-0400 Body temperature 97.3 [degF] Joaquín Brock MD Work Phone: [facility] 12-26-2024 14:14-0400 Body weight 61.69 kg Joaquín Brock MD Work Phone: [facility] 12-26-2024 14:14-0400 Diastolic blood pressure 54 mm[Hg] Joaquín Brock MD Work Phone: [facility] 12-26-2024 14:14-0400 Heart rate 54 /min Joaquín Brock MD Work Phone: [facility] 12-26-2024 14:14-0400 Respiratory rate 20 /min Joaquín Brock MD Work Phone: [facility] 12-26-2024 14:14-0400 SaO2% (BldA) [Mass fraction] 97 % Joaquín Brock MD Work Phone: [facility] 12-26-2024 14:14-0400 Systolic blood pressure 110 mm[Hg] Joaquín Brock MD Work Phone: [facility] Encounters Encounter Date Encounter Type Care Provider Facility Start: 01-24-2025 End: 01-24-2025 Refill Joaquín Brock MD Work Phone: [facility] Comment on above: 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 (Primary Dx) Start: 12-26-2024 End: 12-26-2024 Postop follow up visit related to original px Joaquín Brock MD Work Phone: [facility] Comment on above: Medicare annual well ness visit, subsequent (Primary Dx); Chronic obstructive pulmonary disease, unspecified COPD type ([facility]/HCC); Primary insomnia; Gastroesophageal reflux disease without esophagitis; Encounter for long-term current use of medication; Prediabetes; Lipid screening; Fatigue, unspecified type Start: 12-26-2024 End: 12-26-2024 Bamboo flowsheet Joaquín Brock MD Work Phone: [facility] Start: 12-26-2024 End: 12-26-2024 Bamboo flowsheet Joaquín Brock MD Work Phone: [facility] Start: 12-26-2024 End: 12-26-2024 Patient encounter procedure Joaquín Brock MD Work Phone: [facility] Work Phone: Start: 12-26-2024 End: 12-26-2024 ambulatory JOAQUÍN BROCK Not Available Start: 05-19-2024 End: 05-19-2024 Refill Joaquín Brock MD Work Phone: [facility] Comment on above: 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 Start: 05-17-2024 End: 05-18-2024 Telephone encounter Naila Fair [facility] Comment on above: Med Refill Start: 04-14-2024 End: 04-14-2024 Refill Joaquín Brock MD Work Phone: [facility] Comment on above: 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 Start: 07-30-2022 End: 07-30-[address] JOAQUÍN BROCK Facility:[facility] Start: 03-12-2022 End: 03-13-[address] DOCTOR GUERRERO Facility:[facility] Start: 11-16-2021 End: 11-17-[address] JOAQUÍN BROCK Facility:[facility] Start: 11-15-2021 ambulatory VICTORIA RIBEIRO Facil ity:[facility] Start: 10-28-2021 End: 10-29-[address] JOAQUÍN BROCK Facility:[facility] Start: 10-08-2021 End: 10-09-[address] JOAQUÍN BROCK Facility:[facility] Start: 08-10-2021 End: 08-10-[address] JOAQUÍN BROCK Facility:[facility] Plan of Treatment Date Care Activity Detail Author Start: 12-26-2025 Medicare Annual Wellness (AWV) Medicare Annual Wellness (AWV) [facility] Start: 03-28-2025 End: 03-28-2025 Patient encounter procedure 03/28/2025 2:00 PM EDT Office Visit [facility] [address] [place] [address] Joqauín Brock MD [address] [place] [phone] [facility] Start: 03-27-2025 Influenza [facility] Start: 12-26-2024 End: 12-26-2024 Patient encounter procedure 12/26/2024 2:15 PM EDT Office Visit [facility] [address] [place] [phone] Joaquín Brock MD [address] [place] [phone] Arrived [facility] Comment on above: Arrived Start: 12-26-2024 End: 12-26-2025 Basic metabolic 1998 panel - Serum or Plasma Basic metabolic panel Lab Routine Encounter for long-term current use of medication Expected: 12/26/2024 (Approximate), Expires: 12/26/2025 [facility] Comment on above: Expected: 12/26/2024 (Approximate), Expires: 12/26/2025 Start: 12-26-2024 End: 12-26-2025 CBC W Auto Differential panel - Blood CBC and differential Lab Routine Encounter for long-term current use of medication Expected: 12/26/2024 (Approximate), Expires: 12/26/2025 [facility] Comment on above: Expected: 12/26/2024 (Approximate), Expires: 12/26/2025 Start: 12-26-2024 End: 12-26-2025 Hemoglobin A1c/Hemoglobin.total in Blood Hemoglobin A1c Lab Routine Prediabetes Expected: 12/26/2024 (Approximate), Expires: 12/26/2025 [facility] Work Phone: Comment on above: Expected: 12/26/2024 (Approximate), Expires: 12/26/2025 Start: 12-26-2024 End: 12-26-2025 Hepatic function 2000 panel - Serum or Plasma Hepatic function panel Lab Routine Encounter for long-term current use of medication Expected: 12/26/2024 (Approximate), Expires: 12/26/2025 [facility] Comment on above: Expected: 12/26/2024 (Approximate), Expires: 12/26/2025 Start: 12-26-2024 End: 12-26-2025 Lipid 1996 panel - Serum or Plasma Lipid panel Lab Routine Lipid screening Expected: 12/26/2024 (Approximate), Expires: 12/26/2025 [facility] Comment on above: Expected: 12/26/2024 (Approximate), Expires: 12/26/2025 Start: 12-26-2024 End: 12-26-2025 Thyrotropin [Units/volume] in Serum or Plasma TSH Lab Routine Fatigue, unspecified type Expected: 12/26/2024 (Approximate), Expires: 12/26/2025 [facility] Comment on above: Expected: 12/26/2024 (Approximate), Expires: 12/26/2025 Start: 05-17-2024 End: 05-17-2024 Patient encounter procedure 05/17/2024 10:30 AM EDT Office Visit [facility] [address] [place] [address] Joaquín Brock MD [address] [place] [phone] [facility] Start: 03-27-2024 Influenza vaccination Influenza Vacc ine (#1) [facility] Start: 1964 Pneumococcal Vaccine : 65+ Years (1 of 2 - PCV) Pneumococcal Vaccine: 65+ Years (1 of 2 - PCV) [facility] Start: 1950 Pneumococcal Vaccine : 65+ Years (1 of 2 - PCV) Pneumococcal Vaccine: 65+ Years (1 of 2 - PCV) [facility] Start: 1944 Medicare Annual Wellness (AWV) Medicare Annual Wellness (AWV) [facility] Payers Date Payer Category Payer [facility] BCBS Memb er Subscriber Plan / Payer (Effective 2010-Present) Name: Nara Sadler Relation to Subscriber: Self Name: Nara Sadler Payer ID: Not on file Type: Not on file Address: [address] [place] [id number] 2010 Unknown BCBS BCBS xxxxxx [id number] 2010-Present [phone] [address] [place] [id number] 2009 Medicare [id number] 1959 Medicare [id number] 1959 Unknown [id number] 1944 Unknown [id number]. 2.593 1944 Unknown [id number]. 2.59 1944 Unknown [id number]. 2.593 1944 Unknown [id number] [id number]. 2.593 1944 Unknown [id number] [id number]. 2.593 1944 Unknown [id number] 2.16.840.1.418838.3.579. 2.593 1944 Unknown [id number] 2.16.840.1.823094.3.579. 2.593 1944 Unknown [id number]. 2.1259 Social History Date Type Detail Facility Start: [facility]19[facility]23 [facility] Start: 11-19-2023 Tobacco use and exposure Smokeless t obacco non-user [facility] Start: 11-19-2023 End: 12-26-2024 History of Social function [facility] Start: 11-19-2023 End: 12-26-2024 Tobacco use panel [facility] Start: 1945 Sex assigned at Not on file [facility] Functional Status Date Assessment Result Facility 12-26-2024 Patient Health [facility] ionnaire 2 item (PHQ-2) [Reported] [facility] History of Present illness Narrative 12-26-2024 Joaquín Brock MD - 12/26/2024 2:57 PM EDHarsha Brock MD - 12/26/2024 2:56 PM EDHarsha Brock MD - 12/26/2024 2:15 PM EDT Note Date & Type Note Facility 12-26-2024 History of Presen t illness Narrative Associated Problem(s): COPD (chronic obstructive pulmonary disease) ([facility]) No symptoms and monitor. Associated Problem(s): Medicare annual wellness visit, subsequent Due for labs. Discussed proper diet and regular aerobic exercise. Need aerobic exercise 5-6 days a week for 30 minutes at a time. Smaller portions and limit total calories. Tetanus every 10 years. Advised not to smoke. Images from the original note were not included. Subjective Patient ID: Nara Sadler is a 79 y.o. female who presents for Medicare Annual Wellness Visit Subsequent (Wellness). Presents for medicare annual wellness visit. Patient stable today. Balance off but tries to walk and stay active around house. Tries to watch diet and eat healthy. Increased fruits and vegetables. Smaller portions and limits snacking. Tries to limit total daily calories. Due for labs. C/o reflux and frequent symptoms. COPD stable and no SOB with exertion. Review of Systems Respiratory: Negative for cough, shortness of breath and wheezing. Cardiovascular: Negative for chest pain and palpitations. Gastrointestinal: Negative for abdominal pain, diarrhea, nausea and vomiting. Genitourinary: Negative for dysuria. Objective Physical Exam Constitutional: General: She is not in acute distress. Appearance: Normal appearance. HENT: Head: Normocephalic. Right Ear: Tympanic membrane normal. Left Ear: Tympanic membrane normal. Eyes: Extraocular Movements: Extraocular movements intact. Pupils: Pupils are equal, round, and reactive to light. Cardiovascular: Rate and Rhythm: Normal rate and regular rhythm. Heart sounds: No murmur heard. No friction rub. No gallop. Pulmonary: Effort: Pulmonary effort is normal. Breath sounds: Normal breath sounds. No wheezing, rhonchi or rales. Abdominal: General: Bowel sounds are normal. There is no distension. Palpations: Abdomen is soft. Tenderness: There is no abdominal tenderness. There is no guarding or rebound. Musculoskeletal: General: No swelling or tenderness. Cervical back: Neck supple. Right lower leg: No edema. Left lower leg: No edema. Skin: Findings: No erythema or rash. Neurological: General: No focal deficit present. Mental Status: She is alert and oriented to person, place, and time. Cranial Nerves: No cranial nerve deficit. Motor: No weakness. Gait: Gait normal. Assessment/Plan Problem List Items Addressed This Visit COPD (chronic obstructive pulmonary disease) ([facility]) Insomnia Relevant Medications amitriptyline (Elavil) 75 MG tablet Prediabetes Relevant Orders Hemoglobin A1c Encounter for long-term current use of medication Relevant Orders Basic metabolic panel CBC and differential Hepatic function panel Lipid screening Relevant Orders Lipid panel Medicare annual wellness visit, subsequent - Primary Due for labs. Discussed proper diet and regular aerobic exercise. Need aerobic exercise 5-6 days a week for 30 minutes at a time. Smaller portions and limit total calories. Tetanus every 10 years. Advised not to smoke. Gastroesophageal reflux disease without esophagitis Relevant Medications omeprazole (PriLOSEC) [address] ambrosio Other Visit Diagnoses Fatigue, unspecified type Relevant Orders TSH documented in this encounter [facility] Telephone encounter Note 05-17-2024 Telephone Encounter - Naila Fair - 05/17/2024 4:43 PM EDT Note Date & Type Note Facility 05-17-2024 Telephone encount er Note Patient called and stated she needs a refill of her percocet's but I can't see her Rx [facility] Note 05-17-2024 Telephone Encounter - Niala Fair - 05/17/2024 4:43 PM EDT Note Date & Type Note Facility 05-17-2024 Miscellaneous Notes Formattin g of this note might be different from the original. Patient called and stated she needs a refill of her percocet's but I can't see her Rx documented in this encounter [facility] Clinical Note 07-30-2022 Note Date & Type Note Facility 07-30-2022 Note PROCEDURE: XR KNEE R T 4V or > HISTORY: History of fall ; right knee pain after falling COMPARISON: None. FINDINGS: BONES:Moderate-marked narrowing of the joint spaces bilaterally with large periarticular degenerative osteophytes. SOFT TISSUES:No visible soft tissue swelling. EFFUSION:Small joint effusion. OTHER: Negative. IMPRESSION: 1. Marked degenerative joint disease and small joint effusion. 2. No appreciable acute bone abnormality. Electronically authenticated by: ELDER MABRY Date: 2022-07-30 12:07 [facility] Evaluation note Note Date & Type Note Facility Evaluation note Diagnosis Osteoarthritis of lumbosacral spine with radiculopathy- Primary Chronic obstructive pulmonary disease, unspecified COPD type (CMS/HCC) Overactive bladder Hypertonicity of bladder Lower extremity edema Edema Vitamin D deficiency Prediabetes Other abnormal glucose Lipid screening Screening for lipoid disorders Encounter for long-term current use of medication Osteoarthritis of lumbosacral spine with radiculopathy documented in this encounter [facility] Evaluation note Note Date & Type Note Facility Evaluation note Diagnosis Osteoarthritis of lumbosacral spine with radiculopathy- Primary Chronic obstructive pulmonary disease, unspecified COPD type (CMS/HCC) Overactive bladder Hypertonicity of bladder Lower extremity edema Edema Vitamin D deficiency Prediabetes Other abnormal glucose Lipid screening Screening for lipoid disorders Encounter for long-term current use of medication Osteoarthritis of lumbosacral spine with radiculopathy documented in this encounter [facility] Evaluation note Note Date & Type Note Facility Evaluation note Diagnosis Osteoarthritis of lumbosacral spine with radiculopathy documented in this encounter [facility] Evaluation note Note Date & Type Note Facility Evaluation note Diagnosis Osteoarthritis of lumbosacral spine with radiculopathy- Primary Chronic obstructive pulmonary disease, unspecified COPD type (CMS/HCC) Overactive bladder Hypertonicity of bladder Lower extremity edema Edema Vitamin D deficiency Prediabetes Other abnormal glucose Lipid screening Screening for lipoid disorders Encounter for long-term current use of medication Medicare annual wellness visit, subsequent- Primary Chronic obstructive pulmonary disease, unspecified COPD type (CMS/HCC) Primary insomnia Persistent disorder of initiating or maintaining sleep Gastroesophageal reflux disease without esophagitis Esophageal reflux Encounter for long-term current use of medication Prediabetes Other abnormal glucose Lipid screening Screening for lipoid disorders Fatigue, unspecified type documented in this encounter [facility] Evaluation note Note Date & Type Note Facility Evaluation note Diagnosis Osteoarthritis of lumbosacral spine with radiculopathy- Primary Chronic obstructive pulmonary disease, unspecified COPD type (HCC) Overactive bladder Hypertonicity of bladder Lower extremity edema Edema Vitamin D deficiency Prediabetes Other abnormal glucose Lipid screening Screening for lipoid disorders Encounter for long-term current use of medication Medicare annual wellness visit, subsequent- Primary Chronic obstructive pulmonary disease, unspecified COPD type (HCC) Primary insomnia Persistent disorder of initiating or maintaining sleep Gastroesophageal reflux disease without esophagitis Esophageal reflux Encounter for long-term current use of medication Prediabetes Other abnormal glucose Lipid screening Screening for lipoid disorders Fatigue, unspecified type Osteoarthritis of lumbosacral spine with radiculopathy- Primary documented in this encounter [facility] Summary Purpose Family History No Family History Records FoundNo Family History Records Found Advance Directives No Advanced Directives Records FoundNo Advanced Directives Records Found Additional Source Comments INFORMATION SOURCE (unrecogn ized section and content) DATE CREATED AUTHOR 08/04/2022 [facility] DATE CREATED AUTHOR AUTHOR'S CARINA FISHER 12/27/[address] [facility] EPIC Reason for Visit (unrecogniz ed section and content) Reason Onset Date Comments Med Refill 05/17/2024 Reason Onset Date Comments Med Refill 05/19/2024 Reason Onset Date Comments Med Refill 04/14/2024 Reason Comments Medicare Annual Wellness Visit Subsequen t Wellness Reason Onset Date Comments Med Refill 01/24/2025 Care Teams (unrecognized sec tion and content) Product/Industry Consultant Relationship Specialty Start Date End Date Joaquín Brock MD [address] [place] [phone] PCP - General Family Medicine 11/19/23 Product/Industry Consultant Relationship Specialty Start Date End Date Joaquín Brock MD [address] [place] [phone] PCP - General Family Medicine 11/19/23 Product/Industry Consultant Relationship Specialty Start Date End Date Joaquín Brock MD [address] [place] [phone] PCP - General Family Medicine 11/19/23 Product/Industry Consultant Relationship Specialty Start Date End Date Joaquín Brock MD [address] [place] [phone] PCP - General Family Medicine 11/19/23 Joaquín Brock MD [address] [place] [phone] PCP - [facility] 09/02/24 Product/Industry Consultant Relationship Specialty Start Date End Date Joaquín Brock MD [address] [place] [phone] PCP - General Family Medicine 11/19/23 Joaquín Brock MD [address] [place] [address] [facility] 09/02/24 Product/Industry Consultant Relationship Specialty Start Date End Date Joaquín Brock MD [address] [place] [address] PCP - General Family [facility] 11/19/23 Joaquín Brock MD [address] [place] [address] [facility] Reach 09/02/24 FOR RECORDS PERTAINING TO PATIENTS WHO ARE OR HAVE BEEN ENROLLED IN A CHEMICAL DEPENDENCY/SUBSTANCEABUSE PROGRAM, SOME INFORMATION MAY BE OMITTED. This clinical summary was aggregated from multiple sources. Caution should be exercised in using it in the provision of clinical care. This summary normalizes information from multiple sources, and as a consequence, information in this document may materially change the coding, format and clinical context of patient data. In addition, data may be omitted in some cases. CLINICAL DECISIONS SHOULD BE BASED ON THE PRIMARY CLINICAL RECORDS. [facility] [employer] [facility]. provides no warranty or guarantee of the accuracy or completeness of information in this document.
[2025-02-10 14:44] LABS: Hematocrit 38.8 % (36.0-48.0); Hemoglobin 13.4 g/dL (12.0-16.0); Immature Granulocytes Abs Auto 0.02 10^3/uL (0.00-0.03); Immature Granulocytes Pct Auto 0.4 % (0.0-0.5); Lymphocytes Absolute Auto 1.8 10^3/uL (1.2-3.8); Mean Corpuscular HGB Conc 34.5 g/dL (29.9-35.2); Mean Corpuscular Hemoglobin 32.8 pg (26.7-34.0); Mean Corpuscular Volume 95.1 fL (81.0-99.0); Platelet Count 239 10^3/uL (150-450); Red Blood Count 4.08 10^6/uL (4.20-5.40); White Blood Count 5.7 10^3/uL (4.0-11.0)
[2025-02-10 15:07] LABS: Alanine Aminotransferase 17 U/L (14-59); Albumin Globulin Ratio 1.0; Albumin Level 3.2 g/dL (3.4-5.0); Alkaline Phosphatase 86 U/L (46-116); Anion Gap 12.0; Aspartate Amino Transferase 19 U/L (15-37); Blood Urea Nitrogen 22.0 mg/dL (7.0-18.0); Calcium 9.1 mg/dL (8.5-10.1); Carbon Dioxide 29.3 mmol/L (21.0-32.0); Chloride 107 mmol/L (98-107); Cholesterol 184 mg/dL (<=200); Estimated GFR (African America >60 (>=60 mL/min/1.73m^2); Estimated GFR (Non-African Ame 59 (>=60 mL/min/1.73m^2); Globulin 3.2 g/dL; Glucose 114 mg/dL (74-106); HDL Cholesterol 54 mg/dL (40-60); Potassium 4.3 mmol/L (3.5-5.1); Sodium 144 mmol/L (136-145); Thyroid Stimulating Hormone 1.333 uIU/mL (0.358-3.740); Total Protein 6.4 g/dL (6.4-8.2); Triglycerides 94 mg/dL (<=150); VLDL CHOLESTEROL 18.8 mg/dL
== END 2025-02-10 14:20 | disposition home or self-care (01) ==
PROVIDERS: PCP Family Medicine; Visit Provider Family Medicine
DX: R73.03 Prediabetes (principal); Z79.899 Other long term (current) drug therapy; Z13.220 Encounter for screening for lipoid disorders; R53.83 Other fatigue
CPT/HCPCS: 36415; 80048; 80061; 80076; 83036; 84443